=== PATIENT | male | born 1930 | race Caucasian/White ===

== ENCOUNTER 2018-10-06 11:08 | Inpatient (IN) | payer OTHER ==
[2018-10-06 11:21] VITALS: BMI 18.8
[2018-10-06] MEDS ORDERED: ONDANSETRON 4 MG/2 ML VIAL IVPUSH ONE (13:30)
[2018-10-06] MEDS ORDERED: SODIUM CHLORIDE 0.9% 1000 ML INFUS.BAG IV ONE (13:30)
[2018-10-06] MEDS ORDERED: ACETAMINOPHEN 1000 MG/100 ML VIAL (NON FORMULARY) IVPB ONE (13:30)
[2018-10-06] MEDS ORDERED: ACETAMINOPHEN INJECTION 100 ML IVPB ONE (13:37)
[2018-10-06] MEDS ORDERED: ONDANSETRON 4 MG/2 ML VIAL ONE (13:37)
--- NOTE | 2018-10-06 13:53 | PDOC ---
History of Present Illness - General Chief Complaint: Nausea/Vomiting Stated Complaint: VOMITING/ COUGHING/ ABD PAIN Time Seen by Provider: 10/06/18 13:29 History Source: Patient, Family ( present at bedside) Exam Limitations: No Limitations - History of Present Illness Travel History: No Initial Comments: 10/06/18 13:52 87 y/o M with PMHx of DM, Arthritis, Stroke, HTN, HLD, Hypothyroidism presents with 2 day hx of nausea and NBNB vomiting. Patient present with his , who is present at bedside and provide part of the history. Patient was in his usual state of health, tolerating diet until saturday evening when suddenly he felt nauseous while watching television. Since onset, patient has had 10 episodes of NBNB vomiting and has been unable to tolerate PO Intake. This is the first time he has experienced this many episodes of vomiting. Additionally he complains of mild LUQ pain that has accompanied some episodes. Pcp: Dr. Boo ([place]) Cardio: Dr. Stephens ([place]) PMHx: HTN, HLD, DM, Arthritis, Stroke PSHx: CABG Allergies: Denies Social: Denies tobacco, EtOh, Drugs FHx: Father had DM Past History - Travel Traveled outside of the country in the last 30 days: No Close contact w/someone who was outside of country & ill: No - Past Medical History Allergies/Adverse Reactions: Allergies Allergy/AdvReac Type Severity Reaction Status Date / Time No Known Allergies Allergy Verified 10/06/18 11:21 Home Medications: Ambulatory Orders Carvedilol 12.5 mg PO DAILY 10/06/18 Cilostazol 50 mg PO DAILY 10/06/18 Glimepiride 2 mg PO DAILY 10/06/18 Isosorbide Mononitrate [Isosorbide Mononitrate ER] 60 mg PO DAILY 10/06/18 Levothyroxine [Synthroid -] 50 mcg PO DAILY 10/06/18 Cardiac Disorders: Yes (cardiac bypass possible stents) COPD: No Diabetes: Yes GI Disorders: Yes HTN: Yes Thyroid Disease: Yes Other medical history: Arthritis, poor circulation - Surgical History Cardiac Surgery: Yes - Suicide/Smoking/Psychosocial Hx Smoking History: Never smoked Information on smoking cessation initiated: No Hx Alcohol Use: No Drug/Substance Use Hx: No Abd/GI Specific PMHX - Complaint Specific PMHX Colitis: No Diverticulitis: No Gall Bladder Disease: No GERD: No Hepatitis: No Irritable Bowel Synd (IBS): No Pancreatitis: No GI Ulcer Disease: No Review of Systems - Review of Systems Able to Perform ROS?: Yes Is the patient limited Luxembourger proficient: Yes Constitutional: No: Chills, Diaphoresis, Fever HEENTM: No: Blurred Vision, Throat Pain Respiratory: Yes: Cough, Wheezing. No: Shortness of Breath Cardiac (ROS): No: Chest Pain, Edema ABD/GI: Yes: Nausea, Vomiting. No: Constipated, Diarrhea : No: Dysuria, Hematuria Neurological: No: Numbness, Tingling *Physical Exam - Vital Signs Last Vital Signs Temp Pulse Resp BP Pulse Ox 97.5 F L 73 18 104/80 97 10/06/18 11:17 10/06/18 11:17 10/06/18 11:17 10/06/18 11:17 10/06/18 11:17 - Physical Exam General Appearance: Yes: Nourished, Appropriately Dressed HEENT: positive: EOMI, JOSE. negative: Pharyngeal Erythema, Tonsillar Exudate Neck: positive: Supple Respiratory/Chest: positive: Wheezing, Other (Diminished breath sounds at the bases) Cardiovascular: positive: Regular Rhythm, Regular Rate, S1, S2. negative: Edema , JVD, Murmur Gastrointestinal/Abdominal: positive: Normal Bowel Sounds, Soft. 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 Check CBC, CMP, Trop, Lipase, CXR Give 1L NS, Acetaminophen 1g, Zofran, Duoneb Will reasses 10/06/18 15:51 Laboratory Last Values WBC 4.7 K/mm3 (4.0-10.0) 10/06/18 13:58 RBC 4.01 M/mm3 (4.00-5.60) 10/06/18 13:58 Hgb 12.6 GM/dL (11.7-16.9) 10/06/18 13:58 Hct 38.1 % (35.4-49) 10/06/18 13:58 MCV 95.2 fl (80-96) 10/06/18 13:58 MCH 31.5 pg (25.7-33.7) 10/06/18 13:58 MCHC 33.1 g/dl (32.0-35.9) 10/06/18 13:58 RDW 12.8 % (11.9-15.9) 10/06/18 13:58 Plt Count 219 K/MM3 (134-434) 10/06/18 13:58 MPV 8.2 fl (7.5-11.1) 10/06/18 13:58 Absolute Neuts (auto) 3.2 K/mm3 (1.5-8.0) 10/06/18 13:58 Neutrophils % 69.5 % (42.8-82.8) 10/06/18 13:58 Lymphocytes % 21.3 % (8-40) 10/06/18 13:58 Monocytes % 8.3 % (3.8-10.2) 10/06/18 13:58 Eosinophils % 0.1 % (0-4.5) 10/06/18 13:58 Basophils % 0.8 % (0-2.0) 10/06/18 13:58 Nucleated RBC % 0 % (0-0) 10/06/18 13:58 Sodium 123 mmol/L (136-145) L 10/06/18 13:58 Potassium 5.8 mmol/L (3.5-5.1) H 10/06/18 13:58 Chloride 89 mmol/L (98-107) L 10/06/18 13:58 Carbon Dioxide 27 mmol/L (21-32) 10/06/18 13:58 Anion Gap 7 MMOL/L (8-16) L 10/06/18 13:58 BUN 22.4 mg/dL (7-18) H 10/06/18 13:58 Creatinine 1.6 mg/dL (0.55-1.3) H 10/06/18 13:58 Est GFR (CKD-EPI)AfAm 43.62 10/06/18 13:58 Est GFR (CKD-EPI)NonAf 37.64 10/06/18 13:58 Random Glucose 193 mg/dL (74-106) H 10/06/18 13:58 Calcium 9.0 mg/dL (8.5-10.1) 10/06/18 13:58 Total Bilirubin 0.7 mg/dL (0.2-1) 10/06/18 13:58 AST 25 U/L (15-37) 10/06/18 13:58 ALT 22 U/L (13-61) 10/06/18 13:58 Alkaline Phosphatase 113 U/L (45-117) 10/06/18 13:58 Troponin I 0.03 ng/ml (0.00-0.05) 10/06/18 13:58 Total Protein 7.2 g/dl (6.4-8.2) 10/06/18 13:58 Albumin 3.2 g/dl (3.4-5.0) L 10/06/18 13:58 Lipase 77 U/L (73-393) 10/06/18 13:58 Labwork noted above noted Na 123, K+ 5.8, Cl 89. Dr. duffy paged for admission for symptomatic hyponatremia. 10/06/18 16:[address] Duffy--will observe on med-surg Start IV Hydration with NS @ 100 mls/hr; Goal is to raise Na no greater than 8 in the first 24 hours. 10/06/18 17:13 CXR: A single AP view of the chest reveals a left effusion with left base atelectasis or infiltrate. There is a large heart, unfolded aorta, normal jasson, clear left upper lobe and clear right lung. There are sternal sutures. Correlation recommended. Follow-up needed. Given weakness and productive cough, will cover with Azithromycin and Ceftriaxone. *DC/Admit/Observation/Transfer Diagnosis at time of Disposition: Hyponatremia, Wheezing - Discharge Dispostion Condition at time of disposition: Guarded Decision to Admit order: Yes - Referrals - Patient Instructions - Post Discharge Activity
[2018-10-06] MEDS ORDERED: ALBUTEROL SO4 2.5/IPRATROPIUM 0.5 INH SOL 3 ML VIAL.NEB. NEB ONE ×2 (14:03→14:21)
[2018-10-06 14:14] LABS: BASO % 0.8 % (0-2.0); EOS % 0.1 % (0-4.5); HEMATOCRIT 38.1 % (35.4-49); HEMOGLOBIN 12.6 GM/dL (11.7-16.9); LYMPH % 21.3 % (8-40); MCH 31.5 pg (25.7-33.7); MCHC 33.1 g/dl (32.0-35.9); MEAN CELL VOLUME 95.2 fl (80-96); MEAN PLT VOLUME 8.2 fl (7.5-11.1); MONO % 8.3 % (3.8-10.2); NEUT % 69.5 % (42.8-82.8); PLATELET COUNT 219 K/MM3 (134-434); RBC 4.01 M/mm3 (4.00-5.60); RDW 12.8 % (11.9-15.9); WHITE BLOOD COUNT 4.7 K/mm3 (4.0-10.0)
[2018-10-06 14:49] LABS: ALBUMIN 3.2 g/dl (3.4-5.0); BILIRUBIN,TOTAL 0.7 mg/dL (0.2-1); BLOOD UREA NITROGEN 22.4 mg/dL (7-18); CREATININE 1.6 mg/dL (0.55-1.3); POTASSIUM 5.8 mmol/L (3.5-5.1); TOT PROT 7.2 g/dl (6.4-8.2)
[2018-10-06] MEDS ORDERED: SODIUM CHLORIDE 1,000 ML IV SCH (17:00)
[2018-10-06] MEDS ORDERED: CEFTRIAXONE 1 GM in DEXTROSE 5%-WATER - 100 ML IVPB SCH (17:15)
[2018-10-06] MEDS ORDERED: AZITHROMYCIN IVPB 500 MG in DEXTROSE 5%-WATER - 250 ML IVPB SCH (17:15)
[2018-10-06] MEDS ORDERED: AZITHROMYCIN IVPB 500 MG/250 ML BAG IVPB ONE (17:27)
[2018-10-06] MEDS ORDERED: CEFTRIAXONE 1 GM/50 ML BAG ONE (17:27)
--- NOTE | 2018-10-06 18:14 | HP ---
Admitting History and Physical - Primary Care Physician PCP: Che Bethea - Admission History of Present Illness: 87 y/o M with PMHx of DM, Arthritis, Stroke, HTN, HLD, Hypothyroidism presents with 2 day hx of nausea and NBNB vomiting. Patient present with his , who is present at bedside and provide part of the history. Patient was in his usual state of health, tolerating diet until saturday evening when suddenly he felt nauseous while watching television. Since onset, patient has had 10 episodes of NBNB vomiting and has been unable to tolerate PO Intake. This is the first time he has experienced this many episodes of vomiting. Additionally he complains of mild LUQ pain that has accompanied some episodes. - Past Medical History Cardiovascular: Yes: HTN, Hyperlipdemia - Smoking History Smoking history: Never smoked - Alcohol/Substance Use Hx Alcohol Use: No Home Medications - Allergies Allergies/Adverse Reactions: Allergies Allergy/AdvReac Type Severity Reaction Status Date / Time No Known Allergies Allergy Verified 10/06/18 11:21 - Home Medications Home Medications: Ambulatory Orders Carvedilol 12.5 mg PO DAILY 10/06/18 Cilostazol 50 mg PO DAILY 10/06/18 Glimepiride 2 mg PO DAILY 10/06/18 Isosorbide Mononitrate [Isosorbide Mononitrate ER] 60 mg PO DAILY 10/06/18 Levothyroxine [Synthroid -] 50 mcg PO DAILY 10/06/18 Physical Examination Vital Signs: Vital Signs Temperature 98.5 F 10/06/18 17:52 Pulse Rate 72 10/06/18 17:52 Respiratory Rate 10/06/18 17:52 Blood Pressure 133/68 10/06/18 17:52 O2 Sat by Pulse Oximetry (%) 99 10/06/18 17:52 Constitutional: Yes: No Distress HENT: Yes: Atraumatic Neck: Yes: Supple Cardiovascular: Yes: Regular Rate and Rhythm Respiratory: Yes: CTA Bilaterally Gastrointestinal: Yes: Normal Bowel Sounds Extremities: Yes: WNL Edema: No Peripheral Pulses WNL: Yes Neurological: Yes: Alert, Oriented Labs: CBC, BMP 10/06/18 13:58 10/06/18 13:58 Imaging - Results X-ray: Report Reviewed Cat Scan: Report Reviewed Problem List - Problems (1) Hyponatremia Assessment/Plan: will replace Code(s): E87.1 - HYPO-OSMOLALITY AND HYPONATREMIA (2) Wheezing Code(s): R06.2 - WHEEZING (3) Diabetes mellitus Assessment/Plan: monitor bs Code(s): E11.9 - TYPE 2 DIABETES MELLITUS WITHOUT COMPLICATIONS (4) HTN (hypertension) Assessment/Plan: on meds Code(s): I10 - ESSENTIAL (PRIMARY) HYPERTENSION (5) Hyperkalemia Assessment/Plan: monitor and treat renal on board Code(s): E87.5 - HYPERKALEMIA (6) Vomiting Assessment/Plan: prn zofran better Code(s): R11.10 - VOMITING, UNSPECIFIED Assessment/Plan Laboratory Tests 10/06/18 10/06/18 13:58 13:58 WBC 4.7 RBC 4.01 Hgb 12.6 Hct 38.1 MCV 95.2 MCH 31.5 MCHC 33.1 RDW 12.8 Plt Count 219 MPV 8.2 Absolute Neuts (auto) 3.2 Neutrophils % 69.5 Lymphocytes % 21.3 Monocytes % 8.3 Eosinophils % 0.1 Basophils % 0.8 Nucleated RBC % 0 Sodium 123 L Potassium 5.8 H Chloride 89 L Carbon Dioxide 27 Anion Gap 7 L BUN 22.4 H Creatinine 1.6 H Est GFR (CKD-EPI)AfAm 43.62 Est GFR (CKD-EPI)NonAf 37.64 Random Glucose 193 H Calcium 9.0 Total Bilirubin 0.7 AST 25 ALT 22 Alkaline Phosphatase 113 Troponin I 0.03 Total Protein 7.2 Albumin 3.2 L Lipase 77 Active Medications Generic Name Dose Route Start Last Admin Trade Name Freq PRN Reason Stop Dose Admin Carvedilol 12.5 mg 10/07/18 10:00 Coreg - PO DAILY LIZBETH Cilostazol 50 mg 10/07/18 10:00 Pletal - PO DAILY LIZBETH Glimepiride 2 mg 10/07/18 10:00 Amaryl - PO DAILY LIZBETH Sodium Chloride 1,000 mls @ 100 mls/hr 10/06/18 17:00 10/06/18 17:51 Normal Saline - IV 100 mls/hr ASDIR LIZBETH Administration Azithromycin 500 mg/ Dextrose 250 mls @ 250 mls/hr 10/06/18 17:15 10/06/18 17 :55 IVPB 250 mls/hr DAILY LIZBETH Administration Ceftriaxone Sodium 1 gm/ 100 mls @ 200 mls/hr 10/06/18 17:15 10/06/18 17:51 Dextrose IVPB 200 mls/hr DAILY LIZBETH Administration Protocol Sodium Chloride 1,000 mls @ 100 mls/hr 10/06/18 18:15 Normal Saline - IV ASDIR LIZBETH Isosorbide Mononitrate 60 mg 10/07/18 10:00 Imdur - PO DAILY LIZBETH Levothyroxine Sodium 50 mcg 10/07/18 10:00 Synthroid - PO DAILY LIZBETH
[2018-10-06] MEDS: SODIUM CHLORIDE 1,000 ML IV SCH (18:27)
--- NOTE | 2018-10-06 21:21 | CONSULT ---
Consult Consult Specialty:: Nephrology Reason for Consultation:: hyponatremia and hyperkalemia - History of Present Illness Chief Complaint: nausea and vomiting History of Present Illness: Pt is an 87 year old male with pmhx of DM, arhtritis, CVA, HLD, hypothyroisims, and HTN who presents to the ER with nausea and vomiting. He says that he has had these symptoms for the last 5 days. He says that the nausea and vomiting have gotten worse over the last two days. HE denies abdominal pain. He denies nsaid use. He was found to be hyponatremic and hyperkalemic. He has loss of appetite. He denies dysuria or hematuria. No one else at home has similar symptoms. He does not recall eating anything out of the ordinary. - History Source History Provided By: Patient, Medical Record - Past Medical History Cardio/Vascular: Yes: HTN, Hyperlipdemia Endocrine: Yes: Diabetes Mellitus, Hypothyroidism - Alcohol/Substance Use Hx Alcohol Use: No - Smoking History Smoking history: Never smoked Home Medications - Allergies Allergies/Adverse Reactions: Allergies Allergy/AdvReac Type Severity Reaction Status Date / Time No Known Allergies Allergy Verified 10/06/18 11:21 - Home Medications Home Medications: Ambulatory Orders Carvedilol 12.5 mg PO DAILY 10/06/18 Cilostazol 50 mg PO DAILY 10/06/18 Glimepiride 2 mg PO DAILY 10/06/18 Isosorbide Mononitrate [Isosorbide Mononitrate ER] 60 mg PO DAILY 10/06/18 Levothyroxine [Synthroid -] 50 mcg PO DAILY 10/06/18 Family Disease History - Family Disease History Family History: Denies Review of Systems - Review of Systems Constitutional: reports: Malaise. denies: Chills, Fever Eyes: reports: No Symptoms HENT: reports: No Symptoms Neck: reports: No Symptoms Cardiovascular: reports: No Symptoms Respiratory: reports: No Symptoms Gastrointestinal: reports: Nausea, Vomiting. denies: Vomiting Blood Genitourinary: reports: No Symptoms Musculoskeletal: reports: No Symptoms Integumentary: reports: No Symptoms Neurological: reports: No Symptoms Endocrine: reports: No Symptoms Hematology/Lymphatic: reports: No Symptoms Psychiatric: reports: No Symptoms Physical Exam Vital Signs: Vital Signs Temperature 98.5 F 10/06/18 17:52 Pulse Rate 72 10/06/18 17:52 Respiratory Rate 19 10/06/18 17:52 Blood Pressure 133/68 10/06/18 17:52 O2 Sat by Pulse Oximetry (%) 99 10/06/18 17:52 Constitutional: Yes: Calm Eyes: Yes: Conjunctiva Clear HENT: Yes: Atraumatic Neck: Yes: Supple Cardiovascular: Yes: S1, S2 Respiratory: Yes: CTA Bilaterally Gastrointestinal: Yes: Normal Bowel Sounds, Soft Renal/: Yes: WNL Musculoskeletal: Yes: WNL Edema: No Neurological: Yes: Oriented Psychiatric: Yes: Oriented Labs: CBC, BMP 10/06/18 13:58 10/06/18 13:58 Laboratory Tests 10/06/18 10/06/18 13:58 13:58 WBC 4.7 Hgb 12.6 Plt Count 219 Sodium 123 L Potassium 5.8 H Chloride 89 L BUN 22.4 H Creatinine 1.6 H Random Glucose 193 H Albumin 3.2 L Imaging - Results Chest X-ray: Report Reviewed (left pleural effusion) Problem List - Problems (1) Hyperkalemia Code(s): E87.5 - HYPERKALEMIA (2) HTN (hypertension) Code(s): I10 - ESSENTIAL (PRIMARY) HYPERTENSION (3) Diabetes mellitus Code(s): E11.9 - TYPE 2 DIABETES MELLITUS WITHOUT COMPLICATIONS (4) Vomiting Code(s): R11.10 - VOMITING, UNSPECIFIED (5) Hyponatremia Code(s): E87.1 - HYPO-OSMOLALITY AND HYPONATREMIA Assessment/Plan Current Medications Generic Name Dose Route Start Last Admin Trade Name Freq PRN Reason Stop Dose Admin Carvedilol 12.5 mg 10/07/18 10:00 Coreg - PO DAILY LIZBETH Cilostazol 50 mg 10/07/18 10:00 Pletal - PO DAILY LIZBETH Glimepiride 2 mg 10/07/18 07:00 Amaryl - PO ACBK LIZBETH Heparin Sodium (Porcine) 5,000 unit 10/06/18 22:00 Heparin - SQ BID LIZBETH Azithromycin 500 mg/ Dextrose 250 mls @ 250 mls/hr 10/06/18 17:15 10/06/18 17 :55 IVPB 250 mls/hr DAILY LIZBETH Administration Ceftriaxone Sodium 1 gm/ 100 mls @ 200 mls/hr 10/06/18 17:15 10/06/18 17:51 Dextrose IVPB 200 mls/hr DAILY LIZBETH Administration Protocol Sodium Chloride 1,000 mls @ 100 mls/hr 10/06/18 18:15 10/06/18 18:27 Normal Saline - IV 100 mls/hr ASDIR LIZBETH Administration Isosorbide Mononitrate 60 mg 10/07/18 10:00 Imdur - PO DAILY LIZBETH Levothyroxine Sodium 50 mcg 10/07/18 10:00 Synthroid - PO DAILY@0700 LIZBETH Impression 1. hyponatremia 2. hyperkalemia 3. nausea and vomiting 4. htn 5. dm 6. hypothyroidism 7. javan vs ckd Plan - check ua - check urine lytes and tire repairman - repeat bmp, spoke to nurse to call me with results - can cont fluids for now - check renal ultrasound - electrolyte abnormalities may be from vomiting
[2018-10-06 22:21] LABS: CALCIUM 8.3 mg/dL (8.5-10.1); CREATININE 1.6 mg/dL (0.55-1.3); POTASSIUM 5.4 mmol/L (3.5-5.1)
[2018-10-06] MEDS: HEPARIN NA (PORCINE) 5,000 UNITS/ML 1ML VIAL SQ SCH (22:45)
[2018-10-07] MEDS: SODIUM CHLORIDE 1,000 ML IV SCH ×3 (03:03→21:25)
[2018-10-07 04:45] LABS: EPI CELLS 0.2 /HPF (0-5/HPF); HYALINE CASTS 3 /lpf (0-8); PH,URINE 5.5 (5.0-8.0); URINE APPEARANCE CLEAR; URINE BACTERIA 0.3 /hpf (NEGATIVE); URINE BILIRUBIN NEGATIVE (NEGATIVE); URINE COLOR YELLOW; URINE GLUCOSE (UA) NEGATIVE (NEGATIVE); URINE KETONE NEGATIVE (NEGATIVE); URINE LEUK ESTERASE NEGATIVE (NEGATIVE); URINE NITRITE NEGATIVE (NEGATIVE); URINE PROTEIN 1+ (NEGATIVE); URINE RBC 1 /hpf (0-4); URINE UROBILINOGEN 0.2 mg/dL (0.2-1.0); URINE WBC 0 /hpf (0-5)
[2018-10-07] MEDS: GLIMEPIRIDE 2 MG TABLET (FP) PO SCH (07:08)
--- NOTE | 2018-10-07 08:01 | CON.GI ---
Consult - History of Present Illness History of Present Illness: GI CONSULT DICTATED - PPI -CLEAR LIQUID DIET ADVANCE TOLERATED - ESOPHAGRAM / GI SERIES ORDERED SEE FULL CONSULT DICTATED - Past Medical History Cardio/Vascular: Yes: HTN, Hyperlipdemia Endocrine: Yes: Diabetes Mellitus, Hypothyroidism - Alcohol/Substance Use Hx Alcohol Use: No - Smoking History Smoking history: Never smoked Home Medications - Allergies Allergies/Adverse Reactions: Allergies Allergy/AdvReac Type Severity Reaction Status Date / Time No Known Allergies Allergy Verified 10/06/18 11:21 - Home Medications Home Medications: Ambulatory Orders Carvedilol 12.5 mg PO DAILY 10/06/18 Cilostazol 50 mg PO DAILY 10/06/18 Glimepiride 2 mg PO DAILY 10/06/18 Isosorbide Mononitrate [Isosorbide Mononitrate ER] 60 mg PO DAILY 10/06/18 Levothyroxine [Synthroid -] 50 mcg PO DAILY 10/06/18 Physical Exam-GI Vital Signs: Vital Signs Temperature 97.8 F 10/07/18 06:52 Pulse Rate 68 10/07/18 06:52 Respiratory Rate 20 10/07/18 06:52 Blood Pressure 146/74 10/07/18 06:52 O2 Sat by Pulse Oximetry (%) 98 10/07/18 00:20
[2018-10-07 08:49] LABS: BASO % 0.9 % (0-2.0); EOS % 0.7 % (0-4.5); HEMATOCRIT 35.6 % (35.4-49); LYMPH % 30.5 % (8-40); MCHC 33.7 g/dl (32.0-35.9); MEAN CELL VOLUME 95.1 fl (80-96); MEAN PLT VOLUME 8.6 fl (7.5-11.1); MONO % 13.5 % (3.8-10.2); NEUT % 54.4 % (42.8-82.8); PLATELET COUNT 194 K/MM3 (134-434); RBC 3.74 M/mm3 (4.00-5.60); RDW 13.1 % (11.9-15.9)
[2018-10-07 08:55] LABS: BILIRUBIN,TOTAL 0.5 mg/dL (0.2-1); BLOOD UREA NITROGEN 22.1 mg/dL (7-18); CALCIUM 8.6 mg/dL (8.5-10.1); CREATININE 1.6 mg/dL (0.55-1.3); POTASSIUM 5.5 mmol/L (3.5-5.1); TOT PROT 6.5 g/dl (6.4-8.2)
[2018-10-07] MEDS: LEVOTHYROXINE NA 50 MCG TABLET (FP) PO SCH (09:01)
[2018-10-07] MEDS: CARVEDILOL 12.5 MG TABLET (FP) PO SCH (09:01)
[2018-10-07] MEDS: HEPARIN NA (PORCINE) 5,000 UNITS/ML 1ML VIAL SQ SCH ×2 (09:01→21:25)
[2018-10-07] MEDS: ISOSORBIDE MONONITRATE 60 MG TAB.SR.24H (FP) PO SCH (09:01)
[2018-10-07] MEDS ORDERED: cefTRIAXone SODIUM 1 GM VIAL ONE (09:27)
[2018-10-07] MEDS ORDERED: DEXTROSE 5%-WATER - 50 ML IVPB ONE (09:27)
[2018-10-07] MEDS: CEFTRIAXONE 1 GM in DEXTROSE 5%-WATER - 50 ML IVPB SCH (09:52)
[2018-10-07] MEDS ORDERED: PT OWN MED DRAWER 7, Y5N ONE (10:03)
[2018-10-07] MEDS: CILOSTAZOL 50 MG TABLET (FP) PO SCH (10:23)
[2018-10-07] MEDS: AZITHROMYCIN IVPB 500 MG/250 ML BAG IVPB SCH (10:24)
--- NOTE | 2018-10-07 11:33 | CON.ID ---
Consult Consult Specialty:: infectious diseases Referred by:: Reason for Consultation:: cough sputum production - History of Present Illness Chief Complaint: cough with sputum production History of Present Illness: 87 y/o M with PMHx of DM, Arthritis, Stroke, HTN, HLD, Hypothyroidism presents with 2 day hx of nausea and NBNB vomiting. Patient was in his usual state of health, tolerating diet until saturday evening when suddenly he felt nauseous while watching television. Since onset, patient has had 10 episodes of NBNB vomiting and has been unable to tolerate PO Intake. This is the first time he has experienced this many episodes of vomiting. Additionally he complains of mild LUQ pain that has accompanied some episodes. patient now mentions that he has no abd issues but is producing cough and thinks his lungs are involved - History Source History Provided By: Patient, Caregiver Limitations to Obtaining History: Language Barrier - Past Medical History Cardio/Vascular: Yes: HTN, Hyperlipdemia Endocrine: Yes: Diabetes Mellitus, Hypothyroidism - Alcohol/Substance Use Hx Alcohol Use: No - Smoking History Smoking history: Never smoked Home Medications - Allergies Allergies/Adverse Reactions: Allergies Allergy/AdvReac Type Severity Reaction Status Date / Time No Known Allergies Allergy Verified 10/06/18 11:21 - Home Medications Home Medications: Ambulatory Orders Carvedilol 12.5 mg PO DAILY 10/06/18 Cilostazol 50 mg PO DAILY 10/06/18 Glimepiride 2 mg PO DAILY 10/06/18 Isosorbide Mononitrate [Isosorbide Mononitrate ER] 60 mg PO DAILY 10/06/18 Levothyroxine [Synthroid -] 50 mcg PO DAILY 10/06/18 Review of Systems - Review of Systems Constitutional: reports: No Symptoms Eyes: reports: No Symptoms HENT: reports: No Symptoms Neck: reports: No Symptoms Cardiovascular: reports: No Symptoms Respiratory: reports: Cough, Other (sputum production) Gastrointestinal: reports: Nausea, Vomiting Genitourinary: reports: No Symptoms Breasts: reports: No Symptoms Reported Musculoskeletal: reports: No Symptoms Integumentary: reports: No Symptoms Neurological: reports: No Symptoms Endocrine: reports: No Symptoms Hematology/Lymphatic: reports: No Symptoms Psychiatric: reports: No Symptoms Physical Exam Vital Signs: Vital Signs Temperature 98.8 F 10/07/18 09:57 Pulse Rate 80 10/07/18 09:57 Respiratory Rate 20 10/07/18 09:57 Blood Pressure 153/93 10/07/18 09:57 O2 Sat by Pulse Oximetry (%) 98 10/07/18 08:56 Constitutional: Yes: No Distress, Calm, Thin Neck: Yes: Supple, Trachea Midline Cardiovascular: Yes: Regular Rate and Rhythm Respiratory: Yes: Regular, CTA Bilaterally Gastrointestinal: Yes: Normal Bowel Sounds, Soft Musculoskeletal: Yes: WNL Extremities: Yes: WNL Neurological: Yes: Alert, Oriented Psychiatric: Yes: Alert, Oriented Labs: CBC, BMP 10/07/18 07:20 10/07/18 07:20 Imaging - Results Chest X-ray: Report Reviewed, Image Reviewed Cat Scan: Report Reviewed, Image Reviewed Assessment/Plan Problem List - Problems (1) Hyponatremia Code(s): E87.1 - HYPO-OSMOLALITY AND HYPONATREMIA (2) Wheezing Code(s): R06.2 - WHEEZING 3 vomiting cough plan continue current mgmt await for all reports rest as per the team
--- NOTE | 2018-10-07 12:45 | EKG ---
Test Reason : Blood Pressure : / mmHG Vent. Rate : 064 BPM Atrial Rate : 064 BPM P-R Int : 240 ms QRS Dur : 146 ms QT Int : 534 ms P-R-T Axes : 000 -04 210 degrees QTc Int : 550 ms SINUS RHYTHM WITH 1ST DEGREE A-V BLOCK LEFT BUNDLE BRANCH BLOCK ABNORMAL ECG WHEN COMPARED WITH ECG OF 21-OCT-2008 02:08, NM INTERVAL HAS INCREASED Confirmed by Ruperto Taylor MD ([id number]) on 10/07/2018 12:44:38 PM Referred By: Confirmed By:Ruperto Taylor MD
--- NOTE | 2018-10-07 14:44 | PN ---
Progress Note, Physician History of Present Illness: Pt seen and examined at bedside. He is awake and alert. He denies shortness of breath. - Current Medication List Current Medications: Active Medications Carvedilol (Coreg -) 12.5 mg PO DAILY [facility] Last Admin: 10/07/18 09:01 Dose: 12.5 mg Cilostazol (Pletal -) 50 mg PO DAILY [facility] Last Admin: 10/07/18 10:23 Dose: 50 mg Glimepiride (Amaryl -) 2 mg PO ACBK [facility] Last Admin: 10/07/18 07:08 Dose: 2 mg Heparin Sodium (Porcine) (Heparin -) 5,000 unit SQ BID [facility] Last Admin: 10/07/18 09:01 Dose: 5,000 unit Sodium Chloride (Normal Saline -) 1,000 mls @ 100 mls/hr IV ASDIR [facility] Last Admin: 10/07/18 03:03 Dose: 100 mls/hr Ceftriaxone Sodium 1 gm/ (Dextrose) 50 mls @ 100 mls/hr IVPB DAILY [facility]; Protocol Last Admin: 10/07/18 09:52 Dose: 100 mls/hr Azithromycin (Zithromax 500mg Ivpb (Pre-Docked)) 500 mg in 250 mls @ 250 mls/ hr IVPB DAILY [facility] Last Admin: 10/07/18 10:24 Dose: 250 mls/hr Isosorbide Mononitrate (Imdur -) 60 mg PO DAILY [facility] Last Admin: 10/07/18 09:01 Dose: 60 mg Levothyroxine Sodium (Synthroid -) 50 mcg PO DAILY@0700 [facility] Last Admin: 10/07/18 09:01 Dose: 50 mcg Pantoprazole Sodium (Protonix -) 40 mg PO DAILY [facility] - Objective Vital Signs: Vital Signs Temperature 98.8 F 10/07/18 09:57 Pulse Rate 80 10/07/18 09:57 Respiratory Rate 20 10/07/18 09:57 Blood Pressure 153/93 10/07/18 09:57 O2 Sat by Pulse Oximetry (%) 98 10/07/18 08:56 Constitutional: Yes: Calm Eyes: Yes: Conjunctiva Clear HENT: Yes: Atraumatic Neck: Yes: Supple Cardiovascular: Yes: S1, S2 Respiratory: Yes: CTA Bilaterally Gastrointestinal: Yes: Soft Genitourinary: Yes: WNL Extremities: Yes: WNL Edema: No Neurological: Yes: Oriented Psychiatric: Yes: Oriented Labs: CBC, BMP 10/07/18 07:20 10/07/18 07:20 Problem List - Problems (1) Hyperkalemia Code(s): E87.5 - HYPERKALEMIA (2) HTN (hypertension) Code(s): I10 - ESSENTIAL (PRIMARY) HYPERTENSION (3) Diabetes mellitus Code(s): E11.9 - TYPE 2 DIABETES MELLITUS WITHOUT COMPLICATIONS (4) Vomiting Code(s): R11.10 - VOMITING, UNSPECIFIED (5) Hyponatremia Code(s): E87.1 - HYPO-OSMOLALITY AND HYPONATREMIA Assessment/Plan Current Medications Generic Name Dose Route Start Last Admin Trade Name Freq PRN Reason Stop Dose Admin Carvedilol 12.5 mg 10/07/18 10:00 10/07/18 09:01 Coreg - PO 12.5 mg DAILY LIZBETH Administration Cilostazol 50 mg 10/07/18 10:00 10/07/18 10:23 Pletal - PO 50 mg DAILY LIZBETH Administration Glimepiride 2 mg 10/07/18 07:00 10/07/18 07:08 Amaryl - PO 2 mg ACBK LIZBETH Administration Heparin Sodium (Porcine) 5,000 unit 10/06/18 22:00 10/07/18 09:01 Heparin - SQ 5,000 unit BID LIZEBTH Administration Sodium Chloride 1,000 mls @ 100 mls/hr 10/06/18 18:15 10/07/18 03:03 Normal Saline - IV 100 mls/hr ASDIR LIZBETH Administration Ceftriaxone Sodium 1 gm/ 50 mls @ 100 mls/hr 10/07/18 08:27 10/07/18 09:52 Dextrose IVPB 100 mls/hr DAILY LIZBETH Administration Protocol Azithromycin 500 mg in 250 mls @ 250 mls/hr 10/07/18 09:20 10/07/18 10:24 Zithromax 500mg Ivpb (Pre-Docked) IVPB 250 mls/hr DAILY LIZBETH Administration Isosorbide Mononitrate 60 mg 10/07/18 10:00 10/07/18 09:01 Imdur - PO 60 mg DAILY LIZBETH Administration Levothyroxine Sodium 50 mcg 10/07/18 10:00 10/07/18 09:01 Synthroid - PO 50 mcg DAILY@0700 LIZBETH Administration Pantoprazole Sodium 40 mg 10/07/18 13:45 Protonix - PO DAILY LIZBETH Impression 1. hyponatremia 2. hyperkalemia 3. nausea and vomiting 4. htn 5. dm 6. hypothyroidism 7. javan vs ckd Plan - cont with fluids - sodium improving - will give a dose of lokelma - check renal ultrasound, was just done - electrolyte abnormalities may be from vomiting
[2018-10-07] MEDS ORDERED: SODIUM ZIRCONIUM CYCLOSILICATE (LOKELMA) 5 GM PACKET PO ONE (15:30)
[2018-10-07] MEDS: PANTOPRAZOLE 40 MG TABLET (FP) PO SCH (15:36)
--- NOTE | 2018-10-07 16:13 | PN ---
Progress Note, Physician History of Present Illness: stable - Current Medication List Current Medications: Active Medications Carvedilol (Coreg -) 12.5 mg PO DAILY [facility] Last Admin: 10/07/18 09:01 Dose: 12.5 mg Cilostazol (Pletal -) 50 mg PO DAILY [facility] Last Admin: 10/07/18 10:23 Dose: 50 mg Glimepiride (Amaryl -) 2 mg PO ACBK [facility] Last Admin: 10/07/18 07:08 Dose: 2 mg Heparin Sodium (Porcine) (Heparin -) 5,000 unit SQ BID [facility] Last Admin: 10/07/18 09:01 Dose: 5,000 unit Sodium Chloride (Normal Saline -) 1,000 mls @ 100 mls/hr IV ASDIR [facility] Last Admin: 10/07/18 03:03 Dose: 100 mls/hr Ceftriaxone Sodium 1 gm/ (Dextrose) 50 mls @ 100 mls/hr IVPB DAILY [facility]; Protocol Last Admin: 10/07/18 09:52 Dose: 100 mls/hr Azithromycin (Zithromax 500mg Ivpb (Pre-Docked)) 500 mg in 250 mls @ 250 mls/ hr IVPB DAILY [facility] Last Admin: 10/07/18 10:24 Dose: 250 mls/hr Isosorbide Mononitrate (Imdur -) 60 mg PO DAILY [facility] Last Admin: 10/07/18 09:01 Dose: 60 mg Levothyroxine Sodium (Synthroid -) 50 mcg PO DAILY@0700 [facility] Last Admin: 10/07/18 09:01 Dose: 50 mcg Pantoprazole Sodium (Protonix -) 40 mg PO DAILY [facility] Last Admin: 10/07/18 15:36 Dose: 40 mg - Objective Vital Signs: Vital Signs Temperature 98.8 F 10/07/18 09:57 Pulse Rate 80 10/07/18 09:57 Respiratory Rate 20 10/07/18 09:57 Blood Pressure 153/93 10/07/18 09:57 O2 Sat by Pulse Oximetry (%) 98 10/07/18 08:56 Constitutional: Yes: No Distress HENT: Yes: Atraumatic Neck: Yes: Supple Cardiovascular: Yes: Regular Rate and Rhythm Respiratory: Yes: CTA Bilaterally Gastrointestinal: Yes: Normal Bowel Sounds Extremities: Yes: WNL Edema: No Neurological: Yes: Alert, Oriented Labs: CBC, BMP 10/07/18 07:20 10/07/18 07:20 Problem List - Problems (1) Hyponatremia Assessment/Plan: will replace Code(s): E87.1 - HYPO-OSMOLALITY AND HYPONATREMIA (2) Wheezing Code(s): R06.2 - WHEEZING (3) Hypothyroid Code(s): E03.9 - HYPOTHYROIDISM, UNSPECIFIED (4) Diabetes mellitus Assessment/Plan: monitor bs Code(s): E11.9 - TYPE 2 DIABETES MELLITUS WITHOUT COMPLICATIONS (5) HTN (hypertension) Assessment/Plan: on meds Code(s): I10 - ESSENTIAL (PRIMARY) HYPERTENSION (6) Hyperkalemia Assessment/Plan: monitor and treat renal on board Code(s): E87.5 - HYPERKALEMIA (7) Vomiting Assessment/Plan: prn zofran resolved Code(s): R11.10 - VOMITING, UNSPECIFIED
[2018-10-07] MEDS ORDERED: INSULIN (LEVEMIR) 100 UNITS/ML UNITS SQ ONE (18:09)
--- NOTE | 2018-10-07 19:12 | CONS ---
DATE OF CONSULTATION: DATE OF DICTATION: 10/07/2018 GASTROENTEROLOGY CONSULTATION The patient is an 87-year-old male with a past medical history of diabetes, arthritis, CVA, hypertension, hyperlipidemia, hypothyroidism, who presents with a 2-day history of nausea and vomiting. As per the patient's history, he states that he is still spitting up phlegm, and he is experiencing some epigastric burning sensation. His symptoms apparently began on Saturday, after he developed nausea while watching television. He denies previous episodes in the past. At this time. He denies any abdominal pain, diarrhea, constipation, blood in the stool or hematemesis. He has never had an endoscopic evaluation, as per his history and review of the chart. PAST MEDICAL AND SURGICAL HISTORY: As listed in the HPI. ALLERGIES: No known drug allergies. SOCIAL HISTORY: Does not drink or smoke. Lives with family. HOME MEDICATIONS: Include carvedilol, cilostazol, glimepiride, isosorbide and Synthroid. FAMILY HISTORY: No history of GI or gynecological malignancy. PHYSICAL EXAMINATION: Vital Signs: Temperature 98, pulse 80, respiratory rate 12, blood pressure 150/ 93, pulse oximetry 98% on room air. General: In no acute distress. HEENT: Anicteric sclerae. Cardiovascular: S1/S2. Regular rate and rhythm. Lungs: Bilaterally clear to auscultation. Abdomen: Soft and nontender. Extremities: No edema. LABORATORY DATA: White blood cell count 5, hemoglobin 12, hematocrit 35, MCV 95 , platelet count 194. Sodium 127, potassium 5.5, BUN 22, creatinine 1.6, glucose 103, AST 18, ALT 19, alkaline phosphatase 107, total bilirubin 0.5. Urine protein 1+ . IMAGING: He had an abdomen and pelvis CT scan without contrast, which revealed pleural effusion, bibasilar consolidation versus atelectasis, mild cardiomegaly , and calcification of the coronary arteries. Limited evaluation of the abdomen and pelvis considering there is no contrast. There is no evidence of a small bowel obstruction. However, dense calcified plaques in the abdominal aorta wall down to its bifurcation, without aneurysmal dilation. Subcutaneous edema. A suggestion of anasarca. IMPRESSION: Nausea and vomiting with epigastric burning sensation, further complicated by hyponatremia and wheezing. His current symptoms may be secondary to gastroesophageal reflux disease, peptic ulcer disease or an infectious etiology. RECOMMENDATION: He should be started on Protonix 40 mg IV daily. Clear liquid diet today and can be advanced as tolerated to a full liquid diet and to a bland diet. Further evaluation of his hyponatremia as per the primary medical team. Continue antibiotics and nebulizers for his wheeze and pulmonary process. He is a very poor historian. There is some expression of dysphagia. Will therefore order an esophagram and upper GI series to further evaluate. Would prefer to hold off on any invasive procedures at this time considering his cardiopulmonary process and advanced age. The patient will be followed by the GI service. DO PAO PIERCE/[id number] MTDD
[2018-10-08 07:42] LABS: ALBUMIN 2.9 g/dl (3.4-5.0); BILIRUBIN,TOTAL 0.3 mg/dL (0.2-1); BLOOD UREA NITROGEN 20.3 mg/dL (7-18); CALCIUM 7.8 mg/dL (8.5-10.1); CREATININE 1.5 mg/dL (0.55-1.3); POTASSIUM 3.9 mmol/L (3.5-5.1); TOT PROT 5.9 g/dl (6.4-8.2)
[2018-10-08] MEDS: LEVOTHYROXINE NA 50 MCG TABLET (FP) PO SCH (10:19)
[2018-10-08] MEDS: HEPARIN NA (PORCINE) 5,000 UNITS/ML 1ML VIAL SQ SCH ×2 (10:19→21:59)
[2018-10-08] MEDS: PANTOPRAZOLE 40 MG TABLET (FP) PO SCH (10:19)
[2018-10-08] MEDS: ISOSORBIDE MONONITRATE 60 MG TAB.SR.24H (FP) PO SCH (10:19)
[2018-10-08] MEDS: GLIMEPIRIDE 2 MG TABLET (FP) PO SCH (10:19)
[2018-10-08] MEDS: CARVEDILOL 12.5 MG TABLET (FP) PO SCH (10:19)
[2018-10-08] MEDS: AZITHROMYCIN IVPB 500 MG/250 ML BAG IVPB SCH (10:20)
[2018-10-08] MEDS: CILOSTAZOL 50 MG TABLET (FP) PO SCH (10:22)
--- NOTE | 2018-10-08 11:02 | PN ---
Progress Note, Physician History of Present Illness: stable no new issues gi note noted - Current Medication List Current Medications: Active Medications Carvedilol (Coreg -) 12.5 mg PO DAILY [facility] Last Admin: 10/08/18 10:19 Dose: 12.5 mg Cilostazol (Pletal -) 50 mg PO DAILY [facility] Last Admin: 10/08/18 10:22 Dose: 50 mg Glimepiride (Amaryl -) 2 mg PO ACBK [facility] Last Admin: 10/08/18 10:19 Dose: 2 mg Heparin Sodium (Porcine) (Heparin -) 5,000 unit SQ BID [facility] Last Admin: 10/08/18 10:19 Dose: 5,000 unit Sodium Chloride (Normal Saline -) 1,000 mls @ 100 mls/hr IV ASDIR [facility] Last Admin: 10/07/18 21:25 Dose: Not Given Ceftriaxone Sodium 1 gm/ (Dextrose) 50 mls @ 100 mls/hr IVPB DAILY [facility]; Protocol Last Admin: 10/07/18 09:52 Dose: 100 mls/hr Azithromycin (Zithromax 500mg Ivpb (Pre-Docked)) 500 mg in 250 mls @ 250 mls/ hr IVPB DAILY [facility] Last Admin: 10/08/18 10:20 Dose: 250 mls/hr Isosorbide Mononitrate (Imdur -) 60 mg PO DAILY [facility] Last Admin: 10/08/18 10:19 Dose: 60 mg Levothyroxine Sodium (Synthroid -) 50 mcg PO DAILY@0700 [facility] Last Admin: 10/08/18 10:19 Dose: 50 mcg Pantoprazole Sodium (Protonix -) 40 mg PO DAILY [facility] Last Admin: 10/08/18 10:19 Dose: 40 mg - Objective Vital Signs: Vital Signs Temperature 98.8 F 10/08/18 10:00 Pulse Rate 80 10/08/18 10:00 Respiratory Rate 20 10/08/18 10:00 Blood Pressure 148/84 10/08/18 10:00 O2 Sat by Pulse Oximetry (%) 98 10/07/18 21:00 Constitutional: Yes: Calm Cardiovascular: Yes: Regular Rate and Rhythm Respiratory: Yes: Regular, CTA Bilaterally Gastrointestinal: Yes: Normal Bowel Sounds, Soft Musculoskeletal: Yes: WNL Extremities: Yes: WNL Neurological: Yes: Alert, Oriented Psychiatric: Yes: Alert, Oriented Labs: CBC, BMP 10/07/18 07:20 10/08/18 06:21 Assessment/Plan Problem List - Problems (1) Hyponatremia Code(s): E87.1 - HYPO-OSMOLALITY AND HYPONATREMIA (2) Wheezing Code(s): R06.2 - WHEEZING 3 vomiting cough plan continue current mgmt await for all reports rest as per the team
[2018-10-08] MEDS ORDERED: DEXTROSE 5%-WATER - 50 ML IVPB ONE (12:30)
[2018-10-08] MEDS ORDERED: cefTRIAXone SODIUM 1 GM VIAL ONE (12:30)
[2018-10-08] MEDS: CEFTRIAXONE 1 GM in DEXTROSE 5%-WATER - 50 ML IVPB SCH (12:32)
--- NOTE | 2018-10-08 13:15 | PN ---
Progress Note, Physician History of Present Illness: Pt seen and examined at bedside. He is awake and alert. He denies dysuria or hematuria. - Current Medication List Current Medications: Active Medications Carvedilol (Coreg -) 12.5 mg PO DAILY [facility] Last Admin: 10/08/18 10:19 Dose: 12.5 mg Cilostazol (Pletal -) 50 mg PO DAILY [facility] Last Admin: 10/08/18 10:22 Dose: 50 mg Glimepiride (Amaryl -) 2 mg PO ACBK [facility] Last Admin: 10/08/18 10:19 Dose: 2 mg Heparin Sodium (Porcine) (Heparin -) 5,000 unit SQ BID [facility] Last Admin: 10/08/18 10:19 Dose: 5,000 unit Sodium Chloride (Normal Saline -) 1,000 mls @ 100 mls/hr IV ASDIR [facility] Last Admin: 10/07/18 21:25 Dose: Not Given Ceftriaxone Sodium 1 gm/ (Dextrose) 50 mls @ 100 mls/hr IVPB DAILY [facility]; Protocol Last Admin: 10/08/18 12:32 Dose: 100 mls/hr Azithromycin (Zithromax 500mg Ivpb (Pre-Docked)) 500 mg in 250 mls @ 250 mls/ hr IVPB DAILY [facility] Last Admin: 10/08/18 10:20 Dose: 250 mls/hr Isosorbide Mononitrate (Imdur -) 60 mg PO DAILY [facility] Last Admin: 10/08/18 10:19 Dose: 60 mg Levothyroxine Sodium (Synthroid -) 50 mcg PO DAILY@0700 [facility] Last Admin: 10/08/18 10:19 Dose: 50 mcg Pantoprazole Sodium (Protonix -) 40 mg PO DAILY [facility] Last Admin: 10/08/18 10:19 Dose: 40 mg - Objective Vital Signs: Vital Signs Temperature 98.8 F 10/08/18 10:00 Pulse Rate 80 10/08/18 10:00 Respiratory Rate 20 10/08/18 10:00 Blood Pressure 148/84 10/08/18 10:00 O2 Sat by Pulse Oximetry (%) 98 10/07/18 21:00 Constitutional: Yes: Calm Eyes: Yes: Conjunctiva Clear HENT: Yes: Atraumatic Neck: Yes: Supple Cardiovascular: Yes: S1, S2 Respiratory: Yes: CTA Bilaterally Gastrointestinal: Yes: Soft Genitourinary: Yes: WNL Musculoskeletal: Yes: WNL Edema: No Neurological: Yes: Oriented Psychiatric: Yes: Oriented Labs: CBC, BMP 10/07/18 07:20 10/08/18 06:21 Problem List - Problems (1) Hyperkalemia Code(s): E87.5 - HYPERKALEMIA (2) HTN (hypertension) Code(s): I10 - ESSENTIAL (PRIMARY) HYPERTENSION (3) Diabetes mellitus Code(s): E11.9 - TYPE 2 DIABETES MELLITUS WITHOUT COMPLICATIONS (4) Vomiting Code(s): R11.10 - VOMITING, UNSPECIFIED (5) Hyponatremia Code(s): E87.1 - HYPO-OSMOLALITY AND HYPONATREMIA Assessment/Plan Current Medications Generic Name Dose Route Start Last Admin Trade Name Freq PRN Reason Stop Dose Admin Carvedilol 12.5 mg 10/07/18 10:00 10/08/18 10:19 Coreg - PO 12.5 mg DAILY [facility] Administration Cilostazol 50 mg 10/07/18 10:00 10/08/18 10:22 Pletal - PO 50 mg DAILY [facility] Administration Glimepiride 2 mg 10/07/18 07:00 10/08/18 10:19 Amaryl - PO 2 mg ACBK [facility] Administration Heparin Sodium (Porcine) 5,000 unit 10/06/18 22:00 10/08/18 10:19 Heparin - SQ 5,000 unit BID [facility] Administration Sodium Chloride 1,000 mls @ 100 mls/hr 10/06/18 18:15 10/07/18 21:25 Normal Saline - IV Not Given ASDIR [facility] Ceftriaxone Sodium 1 gm/ 50 mls @ 100 mls/hr 10/07/18 08:27 10/08/18 12:32 Dextrose IVPB 100 mls/hr DAILY [facility] Administration Protocol Azithromycin 500 mg in 250 mls @ 250 mls/hr 10/07/18 09:20 10/08/18 10:20 Zithromax 500mg Ivpb (Pre-Docked) IVPB 250 mls/hr DAILY [facility] Administration Isosorbide Mononitrate 60 mg 10/07/18 10:00 10/08/18 10:19 Imdur - PO 60 mg DAILY [facility] Administration Levothyroxine Sodium 50 mcg 10/07/18 10:00 10/08/18 10:19 Synthroid - PO 50 mcg DAILY@0700 [facility] Administration Pantoprazole Sodium 40 mg 10/07/18 13:45 10/08/18 10:19 Protonix - PO 40 mg DAILY [facility] Administration Impression 1. hyponatremia 2. hyperkalemia 3. nausea and vomiting 4. htn 5. dm 6. hypothyroidism 7. javan vs ckd 8. fatty liver Plan - renal ultrasound reviewed - potassium improved - sodium improving - cont fluids, decrease rate
--- NOTE | 2018-10-08 17:39 | PN ---
Progress Note, Physician History of Present Illness: stable - Current Medication List Current Medications: Active Medications Carvedilol (Coreg -) 12.5 mg PO DAILY [facility] Last Admin: 10/08/18 10:19 Dose: 12.5 mg Cilostazol (Pletal -) 50 mg PO DAILY [facility] Last Admin: 10/08/18 10:22 Dose: 50 mg Glimepiride (Amaryl -) 2 mg PO ACBK [facility] Last Admin: 10/08/18 10:19 Dose: 2 mg Heparin Sodium (Porcine) (Heparin -) 5,000 unit SQ BID [facility] Last Admin: 10/08/18 10:19 Dose: 5,000 unit Ceftriaxone Sodium 1 gm/ (Dextrose) 50 mls @ 100 mls/hr IVPB DAILY [facility]; Protocol Last Admin: 10/08/18 12:32 Dose: 100 mls/hr Azithromycin (Zithromax 500mg Ivpb (Pre-Docked)) 500 mg in 250 mls @ 250 mls/ hr IVPB DAILY [facility] Last Admin: 10/08/18 10:20 Dose: 250 mls/hr Sodium Chloride (Normal Saline -) 1,000 mls @ 75 mls/hr IV ASDIR [facility] Isosorbide Mononitrate (Imdur -) 60 mg PO DAILY [facility] Last Admin: 10/08/18 10:19 Dose: 60 mg Levothyroxine Sodium (Synthroid -) 50 mcg PO DAILY@0700 [facility] Last Admin: 10/08/18 10:19 Dose: 50 mcg Pantoprazole Sodium (Protonix -) 40 mg PO DAILY [facility] Last Admin: 10/08/18 10:19 Dose: 40 mg - Objective Vital Signs: Vital Signs Temperature 97.7 F 10/08/18 16:20 Pulse Rate 77 10/08/18 16:20 Respiratory Rate 18 10/08/18 16:20 Blood Pressure 117/69 10/08/18 16:20 O2 Sat by Pulse Oximetry (%) 97 10/08/18 09:00 Constitutional: Yes: No Distress HENT: Yes: Atraumatic Neck: Yes: Supple Cardiovascular: Yes: Regular Rate and Rhythm Respiratory: Yes: CTA Bilaterally Gastrointestinal: Yes: Normal Bowel Sounds Extremities: Yes: WNL Edema: No Neurological: Yes: Alert, Oriented Labs: CBC, BMP 10/07/18 07:20 10/08/18 06:21 Problem List - Problems (1) Hyponatremia Assessment/Plan: improving Code(s): E87.1 - HYPO-OSMOLALITY AND HYPONATREMIA (2) Wheezing Code(s): R06.2 - WHEEZING (3) Hypothyroid Assessment/Plan: on meds Code(s): E03.9 - HYPOTHYROIDISM, UNSPECIFIED (4) Diabetes mellitus Assessment/Plan: monitor bs Code(s): E11.9 - TYPE 2 DIABETES MELLITUS WITHOUT COMPLICATIONS (5) HTN (hypertension) Assessment/Plan: on meds Code(s): I10 - ESSENTIAL (PRIMARY) HYPERTENSION (6) Hyperkalemia Assessment/Plan: monitor and treat renal on board Code(s): E87.5 - HYPERKALEMIA (7) Vomiting Assessment/Plan: prn zofran resolved Code(s): R11.10 - VOMITING, UNSPECIFIED Assessment/Plan spoke to daughter in detail who was at bedside
--- NOTE | 2018-10-08 20:12 | PN.GI ---
GI Progress Note Subjective: no new complaints - eating with family at the bedside. - Objective Vital Signs: Vital Signs Temperature 97.7 F 10/08/18 16:20 Pulse Rate 77 10/08/18 16:20 Respiratory Rate 18 10/08/18 16:20 Blood Pressure 117/69 10/08/18 16:20 O2 Sat by Pulse Oximetry (%) 97 10/08/18 09:00 Constitutional: Well Nourished, No Distress, Calm Eyes: Yes: WNL HENT: Yes: WNL Neck: Yes: WNL Cardiovascular: Yes: WNL Respiratory: Yes: WNL Gastrointestinal Inspection: Yes: WNL ...Auscultate: Yes: Normoactive Bowel Sounds Extremities: Yes: WNL Edema: No Labs: CBC, BMP 10/07/18 07:20 10/08/18 06:21 Problem List - Problems (1) Dysphagia Assessment/Plan: upper gi series and esophagram reviewed and wnl c/w ppi advance diet as tolerated Code(s): R13.10 - DYSPHAGIA, UNSPECIFIED (2) Nausea & vomiting Code(s): R11.2 - NAUSEA WITH VOMITING, UNSPECIFIED
[2018-10-09] MEDS ORDERED: GLIMEPIRIDE 2 MG TABLET (FP) PO SCH (07:00)
[2018-10-09] MEDS ORDERED: GLIMEPIRIDE 1 MG TABLET (FP) PO SCH (07:00)
[2018-10-09] MEDS: LEVOTHYROXINE NA 50 MCG TABLET (FP) PO SCH (07:02)
[2018-10-09] MEDS: GLIMEPIRIDE 2 MG TABLET (FP) PO SCH (08:40)
[2018-10-09 09:13] LABS: BILIRUBIN,TOTAL 0.4 mg/dL (0.2-1); BLOOD UREA NITROGEN 14.7 mg/dL (7-18); CALCIUM 8.3 mg/dL (8.5-10.1); CREATININE 1.5 mg/dL (0.55-1.3); POTASSIUM 3.9 mmol/L (3.5-5.1); TOT PROT 6.3 g/dl (6.4-8.2)
[2018-10-09] MEDS ORDERED: cefTRIAXone SODIUM 1 GM VIAL ONE (09:57)
[2018-10-09] MEDS ORDERED: DEXTROSE 5%-WATER - 50 ML IVPB ONE (09:57)
[2018-10-09] MEDS: CEFTRIAXONE 1 GM in DEXTROSE 5%-WATER - 50 ML IVPB SCH (10:03)
[2018-10-09] MEDS: CARVEDILOL 12.5 MG TABLET (FP) PO SCH (10:04)
[2018-10-09] MEDS: ISOSORBIDE MONONITRATE 60 MG TAB.SR.24H (FP) PO SCH (10:04)
[2018-10-09] MEDS: CILOSTAZOL 50 MG TABLET (FP) PO SCH (10:04)
[2018-10-09] MEDS: PANTOPRAZOLE 40 MG TABLET (FP) PO SCH (10:04)
[2018-10-09] MEDS: HEPARIN NA (PORCINE) 5,000 UNITS/ML 1ML VIAL SQ SCH ×2 (10:04→21:58)
[2018-10-09] MEDS: SODIUM CHLORIDE 1,000 ML IV SCH ×2 (10:08→21:58)
[2018-10-09] MEDS: AZITHROMYCIN IVPB 500 MG/250 ML BAG IVPB SCH (11:21)
--- NOTE | 2018-10-09 15:34 | DS ---
Physical Examination Vital Signs: Vital Signs Temperature 98.4 F 10/09/18 10:00 Pulse Rate 93 H 10/09/18 10:00 Respiratory Rate 20 10/09/18 10:00 Blood Pressure 123/82 10/09/18 10:00 O2 Sat by Pulse Oximetry (%) 98 10/09/18 09:00 Labs: CBC, BMP 10/07/18 07:20 10/09/18 08:15 Discharge Summary Reason For Visit: HYPONATREMIA Current Active Problems Diabetes mellitus (Acute) Dysphagia (Acute) HTN (hypertension) (Acute) Hyperkalemia (Acute) Hyponatremia (Acute) Hypothyroid (Acute) Nausea & vomiting (Acute) Vomiting (Acute) Wheezing (Acute) Condition: Guarded - Instructions - Home Medications Comprehensive Discharge Medication List: Ambulatory Orders Carvedilol 12.5 mg PO DAILY 10/06/18 Cilostazol 50 mg PO DAILY 10/06/18 Glimepiride 2 mg PO DAILY 10/06/18 Isosorbide Mononitrate [Isosorbide Mononitrate ER] 60 mg PO DAILY 10/06/18 Levothyroxine [Synthroid -] 50 mcg PO DAILY 10/06/18 Amoxicillin/Potassium Clav [Augmentin 875-125 Tablet] 1 each PO BID #10 tablet 10/09/18
--- NOTE | 2018-10-09 15:49 | PN ---
Progress Note, Physician History of Present Illness: Pt seen and examined at bedside. He is awake and appears comfortable. He denies shortness of breath. - Current Medication List Current Medications: Active Medications Carvedilol (Coreg -) 12.5 mg PO DAILY [facility] Last Admin: 10/09/18 10:04 Dose: 12.5 mg Cilostazol (Pletal -) 50 mg PO DAILY [facility] Last Admin: 10/09/18 10:04 Dose: 50 mg Glimepiride (Amaryl -) 2 mg PO ACBK [facility] Last Admin: 10/09/18 08:40 Dose: 2 mg Heparin Sodium (Porcine) (Heparin -) 5,000 unit SQ BID [facility] Last Admin: 10/09/18 10:04 Dose: 5,000 unit Ceftriaxone Sodium 1 gm/ (Dextrose) 50 mls @ 100 mls/hr IVPB DAILY [facility]; Protocol Last Admin: 10/09/18 10:03 Dose: 100 mls/hr Azithromycin (Zithromax 500mg Ivpb (Pre-Docked)) 500 mg in 250 mls @ 250 mls/ hr IVPB DAILY [facility] Last Admin: 10/09/18 11:21 Dose: 250 mls/hr Sodium Chloride (Normal Saline -) 1,000 mls @ 75 mls/hr IV ASDIR [facility] Last Admin: 10/09/18 10:08 Dose: 75 mls/hr Isosorbide Mononitrate (Imdur -) 60 mg PO DAILY [facility] Last Admin: 10/09/18 10:04 Dose: 60 mg Levothyroxine Sodium (Synthroid -) 50 mcg PO DAILY@0700 [facility] Last Admin: 10/09/18 07:02 Dose: 50 mcg Pantoprazole Sodium (Protonix -) 40 mg PO DAILY [facility] Last Admin: 10/09/18 10:04 Dose: 40 mg - Objective Vital Signs: Vital Signs Temperature 98.4 F 10/09/18 10:00 Pulse Rate 93 H 10/09/18 10:00 Respiratory Rate 20 10/09/18 10:00 Blood Pressure 123/82 10/09/18 10:00 O2 Sat by Pulse Oximetry (%) 98 10/09/18 09:00 Constitutional: Yes: Calm Eyes: Yes: Conjunctiva Clear HENT: Yes: Atraumatic Neck: Yes: Supple Cardiovascular: Yes: S1, S2 Respiratory: Yes: CTA Bilaterally Gastrointestinal: Yes: Soft Genitourinary: Yes: WNL Musculoskeletal: Yes: WNL Edema: No Neurological: Yes: Oriented Psychiatric: Yes: Oriented Labs: CBC, BMP 10/07/18 07:20 10/09/18 08:15 Problem List - Problems (1) Hyperkalemia Code(s): E87.5 - HYPERKALEMIA (2) HTN (hypertension) Code(s): I10 - ESSENTIAL (PRIMARY) HYPERTENSION (3) Diabetes mellitus Code(s): E11.9 - TYPE 2 DIABETES MELLITUS WITHOUT COMPLICATIONS (4) Vomiting Code(s): R11.10 - VOMITING, UNSPECIFIED (5) Hyponatremia Code(s): E87.1 - HYPO-OSMOLALITY AND HYPONATREMIA Assessment/Plan Current Medications Generic Name Dose Route Start Last Admin Trade Name Freq PRN Reason Stop Dose Admin Carvedilol 12.5 mg 10/07/18 10:00 10/09/18 10:04 Coreg - PO 12.5 mg DAILY [facility] Administration Cilostazol 50 mg 10/07/18 10:00 10/09/18 10:04 Pletal - PO 50 mg DAILY [facility] Administration Glimepiride 2 mg 10/07/18 07:00 10/09/18 08:40 Amaryl - PO 2 mg ACBK [facility] Administration Heparin Sodium (Porcine) 5,000 unit 10/06/18 22:00 10/09/18 10:04 Heparin - SQ 5,000 unit BID [facility] Administration Ceftriaxone Sodium 1 gm/ 50 mls @ 100 mls/hr 10/07/18 08:27 10/09/18 10:03 Dextrose IVPB 100 mls/hr DAILY [facility] Administration Protocol Azithromycin 500 mg in 250 mls @ 250 mls/hr 10/07/18 09:20 10/09/18 11:21 Zithromax 500mg Ivpb (Pre-Docked) IVPB 250 mls/hr DAILY [facility] Administration Sodium Chloride 1,000 mls @ 75 mls/hr 10/08/18 13:16 10/09/18 10:08 Normal Saline - IV 75 mls/hr ASDIR [facility] Administration Isosorbide Mononitrate 60 mg 10/07/18 10:00 10/09/18 10:04 Imdur - PO 60 mg DAILY [facility] Administration Levothyroxine Sodium 50 mcg 10/07/18 10:00 10/09/18 07:02 Synthroid - PO 50 mcg DAILY@0700 [facility] Administration Pantoprazole Sodium 40 mg 10/07/18 13:45 10/09/18 10:04 Protonix - PO 40 mg DAILY [facility] Administration Impression 1. hyponatremia 2. hyperkalemia 3. nausea and vomiting 4. htn 5. dm 6. hypothyroidism 7. javan vs ckd 8. fatty liver Plan - sodium improving - potassium stable - cont fluids - body cleaner remains elevated, unclear what baseline is. will continue to trend. Can see pt in office
--- NOTE | 2018-10-09 16:01 | PN ---
Progress Note, Physician - Current Medication List Current Medications: Active Medications Carvedilol (Coreg -) 12.5 mg PO DAILY [facility] Last Admin: 10/09/18 10:04 Dose: 12.5 mg Cilostazol (Pletal -) 50 mg PO DAILY [facility] Last Admin: 10/09/18 10:04 Dose: 50 mg Glimepiride (Amaryl -) 2 mg PO ACBK [facility] Last Admin: 10/09/18 08:40 Dose: 2 mg Heparin Sodium (Porcine) (Heparin -) 5,000 unit SQ BID [facility] Last Admin: 10/09/18 10:04 Dose: 5,000 unit Ceftriaxone Sodium 1 gm/ (Dextrose) 50 mls @ 100 mls/hr IVPB DAILY [facility]; Protocol Last Admin: 10/09/18 10:03 Dose: 100 mls/hr Azithromycin (Zithromax 500mg Ivpb (Pre-Docked)) 500 mg in 250 mls @ 250 mls/ hr IVPB DAILY [facility] Last Admin: 10/09/18 11:21 Dose: 250 mls/hr Sodium Chloride (Normal Saline -) 1,000 mls @ 75 mls/hr IV ASDIR [facility] Last Admin: 10/09/18 10:08 Dose: 75 mls/hr Isosorbide Mononitrate (Imdur -) 60 mg PO DAILY [facility] Last Admin: 10/09/18 10:04 Dose: 60 mg Levothyroxine Sodium (Synthroid -) 50 mcg PO DAILY@0700 [facility] Last Admin: 10/09/18 07:02 Dose: 50 mcg Pantoprazole Sodium (Protonix -) 40 mg PO DAILY [facility] Last Admin: 10/09/18 10:04 Dose: 40 mg - Objective Vital Signs: Vital Signs Temperature 98.4 F 10/09/18 10:00 Pulse Rate 93 H 10/09/18 10:00 Respiratory Rate 20 10/09/18 10:00 Blood Pressure 123/82 10/09/18 10:00 O2 Sat by Pulse Oximetry (%) 98 10/09/18 09:00 Constitutional: Yes: No Distress HENT: Yes: Atraumatic Neck: Yes: Supple Cardiovascular: Yes: Regular Rate and Rhythm Respiratory: Yes: CTA Bilaterally Gastrointestinal: Yes: Normal Bowel Sounds Extremities: Yes: WNL Edema: No Peripheral Pulses WNL: Yes Neurological: Yes: Alert, Oriented Labs: CBC, BMP 10/07/18 07:20 10/09/18 08:15 Problem List - Problems (1) Hyponatremia Assessment/Plan: improving Code(s): E87.1 - HYPO-OSMOLALITY AND HYPONATREMIA (2) Wheezing Code(s): R06.2 - WHEEZING (3) Hypothyroid Assessment/Plan: on meds Code(s): E03.9 - HYPOTHYROIDISM, UNSPECIFIED (4) Diabetes mellitus Assessment/Plan: monitor bs Code(s): E11.9 - TYPE 2 DIABETES MELLITUS WITHOUT COMPLICATIONS (5) HTN (hypertension) Assessment/Plan: on meds Code(s): I10 - ESSENTIAL (PRIMARY) HYPERTENSION (6) Hyperkalemia Assessment/Plan: monitor and treat renal on board Code(s): E87.5 - HYPERKALEMIA (7) Vomiting Assessment/Plan: prn zofran resolved Code(s): R11.10 - VOMITING, UNSPECIFIED
--- NOTE | 2018-10-09 17:47 | PN ---
Progress Note, Physician History of Present Illness: Pt seen and examined, events noted. He is alert, without SOB. at bedside states he usually has dry cough at night. Remains afebrile. - Current Medication List Current Medications: Active Medications Carvedilol (Coreg -) 12.5 mg PO DAILY [facility] Last Admin: 10/09/18 10:04 Dose: 12.5 mg Cilostazol (Pletal -) 50 mg PO DAILY [facility] Last Admin: 10/09/18 10:04 Dose: 50 mg Glimepiride (Amaryl -) 2 mg PO ACBK [facility] Last Admin: 10/09/18 08:40 Dose: 2 mg Heparin Sodium (Porcine) (Heparin -) 5,000 unit SQ BID [facility] Last Admin: 10/09/18 10:04 Dose: 5,000 unit Sodium Chloride (Normal Saline -) 1,000 mls @ 75 mls/hr IV ASDIR [facility] Last Admin: 10/09/18 10:08 Dose: 75 mls/hr Isosorbide Mononitrate (Imdur -) 60 mg PO DAILY [facility] Last Admin: 10/09/18 10:04 Dose: 60 mg Levothyroxine Sodium (Synthroid -) 50 mcg PO DAILY@0700 [facility] Last Admin: 10/09/18 07:02 Dose: 50 mcg Pantoprazole Sodium (Protonix -) 40 mg PO DAILY [facility] Last Admin: 10/09/18 10:04 Dose: 40 mg - Objective Vital Signs: Vital Signs Temperature 97.6 F 10/09/18 16:15 Pulse Rate 92 H 10/09/18 16:15 Respiratory Rate 18 10/09/18 16:15 Blood Pressure 147/75 10/09/18 16:15 O2 Sat by Pulse Oximetry (%) 98 10/09/18 09:00 Constitutional: Yes: No Distress, Calm Cardiovascular: Yes: Regular Rate and Rhythm Respiratory: Yes: CTA Bilaterally Gastrointestinal: Yes: Normal Bowel Sounds, Soft Integumentary: Yes: WNL Neurological: Yes: Alert Labs: CBC, BMP 10/07/18 07:20 10/09/18 08:15 Problem List - Problems (1) Diabetes mellitus Code(s): E11.9 - TYPE 2 DIABETES MELLITUS WITHOUT COMPLICATIONS (2) Dysphagia Code(s): R13.10 - DYSPHAGIA, UNSPECIFIED (3) HTN (hypertension) Code(s): I10 - ESSENTIAL (PRIMARY) HYPERTENSION (4) Nausea & vomiting Code(s): R11.2 - NAUSEA WITH VOMITING, UNSPECIFIED Assessment/Plan Cough N/V DM HTN HLD Hypothyroidism -- d/c Ceftriaxone/Azithromycin, switch to Augmentin 500 mg po bid x 3 days starting tomorrow -- pt for discharge currently stable
[2018-10-10] MEDS: SODIUM CHLORIDE 1,000 ML IV SCH (01:59)
[2018-10-10] MEDS: GLIMEPIRIDE 2 MG TABLET (FP) PO SCH (06:04)
[2018-10-10] MEDS: LEVOTHYROXINE NA 50 MCG TABLET (FP) PO SCH (06:04)
[2018-10-10] MEDS ORDERED: AMOX TR/POT CLAV 500MG/125MG TABLETS (FP) PO SCH (08:00)
[2018-10-10] MEDS ORDERED: PT OWN MED DRAWER 7, Y5N ONE (09:03)
[2018-10-10] MEDS: CARVEDILOL 12.5 MG TABLET (FP) PO SCH (09:07)
[2018-10-10] MEDS: HEPARIN NA (PORCINE) 5,000 UNITS/ML 1ML VIAL SQ SCH ×2 (09:07→22:17)
[2018-10-10] MEDS: ISOSORBIDE MONONITRATE 60 MG TAB.SR.24H (FP) PO SCH (09:07)
[2018-10-10] MEDS: PANTOPRAZOLE 40 MG TABLET (FP) PO SCH (09:07)
[2018-10-10] MEDS: CILOSTAZOL 50 MG TABLET (FP) PO SCH (09:09)
[2018-10-10] MEDS ORDERED: ALBUTEROL SO4 0.083% IH SOL 2.5 MG/3 ML VIAL.NEB. NEB ONE (10:00)
--- NOTE | 2018-10-10 10:38 | CONSULT ---
Admitting History and Physical - Primary Care Physician PCP: Che Bethea - Admission History of Present Illness: 87 y/o M with PMHx of DM, Arthritis, Stroke, HTN, HLD, Hypothyroidism presents with 2 day hx of nausea and NBNB vomiting. Selected Entries 10/08/18 10/09/18 10/09/18 18:30 06:47 10:00 Breakfast 25% Diet Tolerated Well Lunch 50% Supper 75% Temperature 97.7 F 98.4 F 10/09/18 10/09/18 10/09/18 16:15 18:30 22:00 Breakfast Diet Tolerated Well Lunch Supper 75% Temperature 97.6 F 97.8 F 10/10/18 06:54 Breakfast Diet Tolerated Lunch Supper Temperature 97.4 F L Laboratory Tests 10/07/18 07:20 WBC 5.0 Advanced to soft diet/thin liquids. Nursing reports pt has been coughing, noted with and without meals, possibly more so with meals. UGI/esophagram unremarkable. Rapid Response called before pt examined, cold and clammy. Placed on NR. Assessment deferred. - Past Medical History Cardiovascular: Yes: HTN, Hyperlipdemia Endocrine: Yes: Diabetes Mellitus, Hypothyroidism - Smoking History Smoking history: Never smoked - Alcohol/Substance Use Hx Alcohol Use: No History - Admission Reason For Visit: HYPONATREMIA - Diagnostics X-ray: Report Reviewed (10/06 noted. Repeat CXR pending) - Hearing Hearing: Impaired Hearing Aide: No
--- NOTE | 2018-10-10 10:53 | RAPID ---
Physical Examination Vital Signs: Vital Signs Temperature 97.4 F L 10/10/18 06:54 Pulse Rate 90 10/10/18 06:54 Respiratory Rate 20 10/10/18 06:54 Blood Pressure 157/87 10/10/18 06:54 O2 Sat by Pulse Oximetry (%) 98 10/09/18 21:00 Findings/Remarks: Called to evaluate patient for oxygen desaturation. Patient placed on nonrebreather. Sat at 66, over time saturation increased to 98. On evaluation 167/103, 98% hr 111 171/115 99 on norebreather A: crackles b/l bases, patient clammy and damp Plan CXR ABG, CBC, CMP hold fluids, lasix 40 given, imbur 30 ordered continue oxygen supplementation to keep above 90% will transfer patient to tele for closer monitoring Labs: CBC, BMP 10/07/18 07:20 10/09/18 08:15
[2018-10-10] MEDS ORDERED: FUROSEMIDE 40 MG/4 ML INJECTABLE VIAL IVPB ONE (11:00)
[2018-10-10 11:14] LABS: ARTERIAL BLD GAS O2 SATURATION 97.7 % (95-98); ARTERIAL BLOOD GAS PCO2 39.4 mmHg (35-45); ARTERIAL BLOOD GAS PO2 123 mmHg (80-105); ARTERIAL BLOOD GAS pH 7.28 (7.35-7.45)
[2018-10-10 11:17] LABS: ALLENS TEST POSITIVE
[2018-10-10] MEDS ORDERED: ISOSORBIDE MONONITRATE 30 MG TAB.SR.24H (FP) PO ONE (11:30)
--- NOTE | 2018-10-10 11:41 | PN ---
Progress Note, Physician History of Present Illness: events noted - Current Medication List Current Medications: Active Medications Amoxicillin/Clavulanate Potassium (Augmentin - 500mg Tablet) 1 tab PO BID@0800, 1730 [facility] Last Admin: 10/10/18 09:00 Dose: 1 tab Carvedilol (Coreg -) 12.5 mg PO DAILY [facility] Last Admin: 10/10/18 09:07 Dose: 12.5 mg Cilostazol (Pletal -) 50 mg PO DAILY [facility] Last Admin: 10/10/18 09:09 Dose: 50 mg Glimepiride (Amaryl -) 2 mg PO ACBK [facility] Last Admin: 10/10/18 06:04 Dose: 2 mg Heparin Sodium (Porcine) (Heparin -) 5,000 unit SQ BID [facility] Last Admin: 10/10/18 09:07 Dose: 5,000 unit Isosorbide Mononitrate (Imdur -) 60 mg PO DAILY [facility] Last Admin: 10/10/18 09:07 Dose: 60 mg Levothyroxine Sodium (Synthroid -) 50 mcg PO DAILY@0700 [facility] Last Admin: 10/10/18 06:04 Dose: 50 mcg Pantoprazole Sodium (Protonix -) 40 mg PO DAILY [facility] Last Admin: 10/10/18 09:07 Dose: 40 mg - Objective Vital Signs: Vital Signs Temperature 97.4 F L 10/10/18 06:54 Pulse Rate 90 10/10/18 06:54 Respiratory Rate 20 10/10/18 06:54 Blood Pressure 157/87 10/10/18 06:54 O2 Sat by Pulse Oximetry (%) 98 10/09/18 21:00 Labs: CBC, BMP 10/07/18 07:20 10/09/18 08:15
[2018-10-10 12:15] LABS: BASO % 1.2 % (0-2.0); EOS % 0.4 % (0-4.5); HEMATOCRIT 36.7 % (35.4-49); MCH 31.7 pg (25.7-33.7); MCHC 32.8 g/dl (32.0-35.9); MEAN CELL VOLUME 96.6 fl (80-96); MEAN PLT VOLUME 8.2 fl (7.5-11.1); MONO % 12.5 % (3.8-10.2); NEUT % 66.9 % (42.8-82.8); WHITE BLOOD COUNT 4.6 K/mm3 (4.0-10.0)
[2018-10-10 12:21] LABS: PLATELET COUNT 242 K/MM3 (134-434)
[2018-10-10 12:45] LABS: ALBUMIN 3.2 g/dl (3.4-5.0); BILIRUBIN,TOTAL 0.7 mg/dL (0.2-1); BLOOD UREA NITROGEN 15.9 mg/dL (7-18); CALCIUM 8.4 mg/dL (8.5-10.1); CREATININE 1.9 mg/dL (0.55-1.3); POTASSIUM 3.7 mmol/L (3.5-5.1); TOT PROT 6.8 g/dl (6.4-8.2)
--- NOTE | 2018-10-10 13:37 | PN ---
Progress Note, Physician History of Present Illness: events noted better now - Current Medication List Current Medications: Active Medications Amoxicillin/Clavulanate Potassium (Augmentin - 500mg Tablet) 1 tab PO BID@0800, 1730 [facility] Last Admin: 10/10/18 09:00 Dose: 1 tab Carvedilol (Coreg -) 12.5 mg PO DAILY [facility] Last Admin: 10/10/18 09:07 Dose: 12.5 mg Cilostazol (Pletal -) 50 mg PO DAILY [facility] Last Admin: 10/10/18 09:09 Dose: 50 mg Glimepiride (Amaryl -) 2 mg PO ACBK [facility] Last Admin: 10/10/18 06:04 Dose: 2 mg Heparin Sodium (Porcine) (Heparin -) 5,000 unit SQ BID [facility] Last Admin: 10/10/18 09:07 Dose: 5,000 unit Isosorbide Mononitrate (Imdur -) 60 mg PO DAILY [facility] Last Admin: 10/10/18 09:07 Dose: 60 mg Levothyroxine Sodium (Synthroid -) 50 mcg PO DAILY@0700 [facility] Last Admin: 10/10/18 06:04 Dose: 50 mcg Pantoprazole Sodium (Protonix -) 40 mg PO DAILY [facility] Last Admin: 10/10/18 09:07 Dose: 40 mg - Objective Vital Signs: Vital Signs Temperature 98.3 F 10/10/18 09:00 Pulse Rate 111 H 10/10/18 10:00 Respiratory Rate 20 10/10/18 10:00 Blood Pressure 167/103 H 10/10/18 10:00 O2 Sat by Pulse Oximetry (%) 98 10/09/18 21:00 Constitutional: Yes: No Distress HENT: Yes: Atraumatic Neck: Yes: Supple Cardiovascular: Yes: Regular Rate and Rhythm Respiratory: Yes: CTA Bilaterally Gastrointestinal: Yes: Normal Bowel Sounds Extremities: Yes: WNL Edema: No Peripheral Pulses WNL: Yes Neurological: Yes: Alert, Oriented Labs: CBC, BMP 10/10/18 11:24 10/10/18 11:24 Problem List - Problems (1) Hyponatremia Assessment/Plan: improving Code(s): E87.1 - HYPO-OSMOLALITY AND HYPONATREMIA (2) Wheezing Code(s): R06.2 - WHEEZING (3) Hypothyroid Assessment/Plan: on meds Code(s): E03.9 - HYPOTHYROIDISM, UNSPECIFIED (4) Diabetes mellitus Assessment/Plan: monitor bs Code(s): E11.9 - TYPE 2 DIABETES MELLITUS WITHOUT COMPLICATIONS (5) HTN (hypertension) Assessment/Plan: on meds Code(s): I10 - ESSENTIAL (PRIMARY) HYPERTENSION (6) Hyperkalemia Assessment/Plan: wnl now Code(s): E87.5 - HYPERKALEMIA (7) Vomiting Assessment/Plan: prn zofran resolved Code(s): R11.10 - VOMITING, UNSPECIFIED (8) Fluid overload Assessment/Plan: dc ivf iv lasix breathing much better Code(s): E87.70 - FLUID OVERLOAD, UNSPECIFIED
[2018-10-10 14:05] LABS: ANISOCYTOSIS 1+; MACROCYTOSIS 1+; OVALOCYTE 1+; PLATELET ESTIMATE NORMAL
--- NOTE | 2018-10-10 15:27 | PN ---
Progress Note, Physician History of Present Illness: Pt seen and examined at bedside. He was hypertensive and short of breath this morning. Rapid response was called and he was transferred to tele. - Current Medication List Current Medications: Active Medications Amoxicillin/Clavulanate Potassium (Augmentin - 500mg Tablet) 1 tab PO BID@0800, 1730 [facility] Carvedilol (Coreg -) 12.5 mg PO DAILY [facility] Cilostazol (Pletal -) 50 mg PO DAILY [facility] Glimepiride (Amaryl -) 2 mg PO ACBK [facility] Heparin Sodium (Porcine) (Heparin -) 5,000 unit SQ BID [facility] Isosorbide Mononitrate (Imdur -) 60 mg PO DAILY [facility] Levothyroxine Sodium (Synthroid -) 50 mcg PO DAILY@0700 [facility] Pantoprazole Sodium (Protonix -) 40 mg PO DAILY [facility] - Objective Vital Signs: Vital Signs Temperature 98.3 F 10/10/18 09:00 Pulse Rate 111 H 10/10/18 10:00 Respiratory Rate 20 10/10/18 10:00 Blood Pressure 167/103 H 10/10/18 10:00 O2 Sat by Pulse Oximetry (%) 98 10/09/18 21:00 Constitutional: Yes: Calm Eyes: Yes: Conjunctiva Clear HENT: Yes: Atraumatic Neck: Yes: Supple Cardiovascular: Yes: S1, S2 Respiratory: Yes: On Venti-Mask Gastrointestinal: Yes: Soft Genitourinary: Yes: WNL Musculoskeletal: Yes: WNL Edema: LLE: Trace, RLE: Trace Neurological: Yes: Oriented Psychiatric: Yes: Oriented Labs: CBC, BMP 10/10/18 11:24 10/10/18 11:24 Problem List - Problems (1) Hyperkalemia Code(s): E87.5 - HYPERKALEMIA (2) HTN (hypertension) Code(s): I10 - ESSENTIAL (PRIMARY) HYPERTENSION (3) Diabetes mellitus Code(s): E11.9 - TYPE 2 DIABETES MELLITUS WITHOUT COMPLICATIONS (4) Vomiting Code(s): R11.10 - VOMITING, UNSPECIFIED (5) Hyponatremia Code(s): E87.1 - HYPO-OSMOLALITY AND HYPONATREMIA Assessment/Plan Current Medications Generic Name Dose Route Start Last Admin Trade Name Freq PRN Reason Stop Dose Admin Amoxicillin/Clavulanate Potassium 1 tab 06/14/19 17:30 Augmentin - 500mg Tablet PO BID@0800,1730 [facility] Carvedilol 12.5 mg 10/11/18 10:00 Coreg - PO DAILY [facility] Cilostazol 50 mg 10/11/18 10:00 Pletal - PO DAILY [facility] Glimepiride 2 mg 10/11/18 07:00 Amaryl - PO ACBK [facility] Heparin Sodium (Porcine) 5,000 unit 10/10/18 22:00 Heparin - SQ BID [facility] Isosorbide Mononitrate 60 mg 10/11/18 10:00 Imdur - PO DAILY [facility] Levothyroxine Sodium 50 mcg 10/11/18 07:00 Synthroid - PO DAILY@0700 [facility] Pantoprazole Sodium 40 mg 10/11/18 10:00 Protonix - PO DAILY [facility] Impression 1. hyponatremia 2. hyperkalemia 3. nausea and vomiting 4. htn 5. dm 6. hypothyroidism 7. javan vs ckd 8. fatty liver Plan - d/c fluids - will give another dose of lasix - increase coreg to 25 bid - monitor bp closely - monitor lyjarrett
[2018-10-10] MEDS ORDERED: FUROSEMIDE 40 MG/4 ML INJECTABLE VIAL IVPUSH ONE (15:45)
[2018-10-10] MEDS: AMOX TR/POT CLAV 500MG/125MG TABLETS (FP) PO SCH (18:55)
[2018-10-10] MEDS ORDERED: CARVEDILOL 12.5 MG TABLET (FP) PO SCH (22:00)
[2018-10-10] MEDS: CARVEDILOL 25 MG TABLET (FP) PO SCH (22:13)
[2018-10-11] MEDS: LEVOTHYROXINE NA 50 MCG TABLET (FP) PO SCH (06:41)
[2018-10-11] MEDS: GLIMEPIRIDE 2 MG TABLET (FP) PO SCH (06:41)
[2018-10-11] MEDS: AMOX TR/POT CLAV 500MG/125MG TABLETS (FP) PO SCH ×2 (09:29→17:44)
[2018-10-11] MEDS: ISOSORBIDE MONONITRATE 60 MG TAB.SR.24H (FP) PO SCH (09:30)
[2018-10-11] MEDS: CARVEDILOL 25 MG TABLET (FP) PO SCH ×2 (09:30→22:51)
[2018-10-11] MEDS: HEPARIN NA (PORCINE) 5,000 UNITS/ML 1ML VIAL SQ SCH ×2 (09:30→22:51)
[2018-10-11] MEDS: PANTOPRAZOLE 40 MG TABLET (FP) PO SCH (09:31)
[2018-10-11] MEDS: CILOSTAZOL 50 MG TABLET (FP) PO SCH (09:31)
[2018-10-11] MEDS ORDERED: CARVEDILOL 12.5 MG TABLET (FP) PO SCH (10:00)
[2018-10-11] MEDS ORDERED: ISOSORBIDE MONONITRATE 30 MG TAB.SR.24H (FP) PO ONE (10:58)
[2018-10-11] MEDS ORDERED: FUROSEMIDE 40 MG/4 ML INJECTABLE VIAL IVPB ONE (11:00)
--- NOTE | 2018-10-11 11:52 | PN ---
Progress Note (short form) - Note Progress Note: 1. hyponatremia 2. hyperkalemia 3. nausea and vomiting 4. htn 5. dm 6. hypothyroidism 7. javan vs ckd 8. fatty liver Active Medications Amoxicillin/Clavulanate Potassium (Augmentin - 500mg Tablet) 1 tab PO BID@0800, 1730 [facility] Last Admin: 10/11/18 09:29 Dose: Not Given Carvedilol (Coreg -) 25 mg PO BID [facility] Last Admin: 10/11/18 09:30 Dose: Not Given Cilostazol (Pletal -) 50 mg PO DAILY [facility] Last Admin: 10/11/18 09:31 Dose: Not Given Glimepiride (Amaryl -) 2 mg PO ACBK [facility] Last Admin: 10/11/18 06:41 Dose: Not Given Heparin Sodium (Porcine) (Heparin -) 5,000 unit SQ BID [facility] Last Admin: 10/11/18 09:30 Dose: 5,000 unit Isosorbide Mononitrate (Imdur -) 60 mg PO DAILY [facility] Last Admin: 10/11/18 09:30 Dose: Not Given Levothyroxine Sodium (Synthroid -) 50 mcg PO DAILY@0700 [facility] Last Admin: 10/11/18 06:41 Dose: Not Given Pantoprazole Sodium (Protonix -) 40 mg PO DAILY [facility] Last Admin: 10/11/18 09:31 Dose: Not Given lying flate denies sob Last Vital Signs Temp Pulse Resp BP Pulse Ox 98.5 F 72 20 106/64 100 10/11/18 10:00 10/11/18 10:00 10/11/18 10:00 10/11/18 10:00 10/11/18 09:00 lungs clear heart reg abd soft nontender CBC, BMP 10/10/18 11:24 10/10/18 11:24 IMP
--- NOTE | 2018-10-11 14:13 | PN ---
Progress Note, Physician - Current Medication List Current Medications: Active Medications Amoxicillin/Clavulanate Potassium (Augmentin - 500mg Tablet) 1 tab PO BID@0800, 1730 [facility] Last Admin: 10/11/18 09:29 Dose: Not Given Carvedilol (Coreg -) 25 mg PO BID [facility] Last Admin: 10/11/18 09:30 Dose: Not Given Cilostazol (Pletal -) 50 mg PO DAILY [facility] Last Admin: 10/11/18 09:31 Dose: Not Given Glimepiride (Amaryl -) 2 mg PO ACBK [facility] Last Admin: 10/11/18 06:41 Dose: Not Given Heparin Sodium (Porcine) (Heparin -) 5,000 unit SQ BID [facility] Last Admin: 10/11/18 09:30 Dose: 5,000 unit Isosorbide Mononitrate (Imdur -) 60 mg PO DAILY [facility] Last Admin: 10/11/18 09:30 Dose: Not Given Levothyroxine Sodium (Synthroid -) 50 mcg PO DAILY@0700 [facility] Last Admin: 10/11/18 06:41 Dose: Not Given Pantoprazole Sodium (Protonix -) 40 mg PO DAILY [facility] Last Admin: 10/11/18 09:31 Dose: Not Given - Objective Vital Signs: Vital Signs Temperature 98.5 F 10/11/18 10:00 Pulse Rate 72 10/11/18 10:00 Respiratory Rate 20 10/11/18 10:00 Blood Pressure 106/64 10/11/18 10:00 O2 Sat by Pulse Oximetry (%) 100 10/11/18 09:00 Labs: CBC, BMP 10/10/18 11:24 10/10/18 11:24
--- NOTE | 2018-10-11 14:18 | PN ---
Progress Note, Physician History of Present Illness: feeling better - Current Medication List Current Medications: Active Medications Amoxicillin/Clavulanate Potassium (Augmentin - 500mg Tablet) 1 tab PO BID@0800, 1730 [facility] Last Admin: 10/11/18 09:29 Dose: Not Given Carvedilol (Coreg -) 25 mg PO BID [facility] Last Admin: 10/11/18 09:30 Dose: Not Given Cilostazol (Pletal -) 50 mg PO DAILY [facility] Last Admin: 10/11/18 09:31 Dose: Not Given Glimepiride (Amaryl -) 2 mg PO ACBK [facility] Last Admin: 10/11/18 06:41 Dose: Not Given Heparin Sodium (Porcine) (Heparin -) 5,000 unit SQ BID [facility] Last Admin: 10/11/18 09:30 Dose: 5,000 unit Isosorbide Mononitrate (Imdur -) 60 mg PO DAILY [facility] Last Admin: 10/11/18 09:30 Dose: Not Given Levothyroxine Sodium (Synthroid -) 50 mcg PO DAILY@0700 [facility] Last Admin: 10/11/18 06:41 Dose: Not Given Pantoprazole Sodium (Protonix -) 40 mg PO DAILY [facility] Last Admin: 10/11/18 09:31 Dose: Not Given - Objective Vital Signs: Vital Signs Temperature 98.5 F 10/11/18 10:00 Pulse Rate 72 10/11/18 10:00 Respiratory Rate 20 10/11/18 10:00 Blood Pressure 106/64 10/11/18 10:00 O2 Sat by Pulse Oximetry (%) 100 10/11/18 09:00 Constitutional: Yes: No Distress HENT: Yes: Atraumatic Neck: Yes: Supple Cardiovascular: Yes: Regular Rate and Rhythm Respiratory: Yes: Rhonchi Gastrointestinal: Yes: Normal Bowel Sounds Extremities: Yes: WNL Neurological: Yes: Alert, Oriented Labs: CBC, BMP 10/10/18 11:24 10/10/18 11:24 Problem List - Problems (1) Hyponatremia Assessment/Plan: improving Code(s): E87.1 - HYPO-OSMOLALITY AND HYPONATREMIA (2) Wheezing Code(s): R06.2 - WHEEZING (3) Hypothyroid Assessment/Plan: on meds Code(s): E03.9 - HYPOTHYROIDISM, UNSPECIFIED (4) Diabetes mellitus Assessment/Plan: monitor bs Code(s): E11.9 - TYPE 2 DIABETES MELLITUS WITHOUT COMPLICATIONS (5) HTN (hypertension) Code(s): I10 - ESSENTIAL (PRIMARY) HYPERTENSION (6) Hyperkalemia Assessment/Plan: wnl now Code(s): E87.5 - HYPERKALEMIA (7) Vomiting Assessment/Plan: prn zofran resolved Code(s): R11.10 - VOMITING, UNSPECIFIED (8) Fluid overload Assessment/Plan: breathing much improved on iv lasix Code(s): E87.70 - FLUID OVERLOAD, UNSPECIFIED
[2018-10-12] MEDS ORDERED: PT OWN MED DRAWER 7, Y5N ONE ×3 (05:26→09:00)
[2018-10-12] MEDS: LEVOTHYROXINE NA 50 MCG TABLET (FP) PO SCH (06:07)
[2018-10-12] MEDS: GLIMEPIRIDE 2 MG TABLET (FP) PO SCH (06:07)
[2018-10-12 07:47] LABS: HEMOGLOBIN 10.6 GM/dL (11.7-16.9); RDW 13.2 % (11.9-15.9)
[2018-10-12 08:10] LABS: ALBUMIN 2.6 g/dl (3.4-5.0); BILIRUBIN,TOTAL 0.4 mg/dL (0.2-1); BLOOD UREA NITROGEN 25.6 mg/dL (7-18); CALCIUM 8.4 mg/dL (8.5-10.1); CREATININE 1.6 mg/dL (0.55-1.3); POTASSIUM 3.1 mmol/L (3.5-5.1); TOT PROT 5.5 g/dl (6.4-8.2)
[2018-10-12 08:53] LABS: BASO % 2.7 % (0-2.0); EOS % 4.1 % (0-4.5); HEMATOCRIT 32.1 % (35.4-49); LYMPH % 30.3 % (8-40); MCH 31.3 pg (25.7-33.7); MEAN CELL VOLUME 94.7 fl (80-96); MONO % 11.9 % (3.8-10.2); RBC 3.39 M/mm3 (4.00-5.60)
[2018-10-12 08:54] LABS: PLATELET COUNT 221 K/MM3 (134-434)
[2018-10-12] MEDS: AMOX TR/POT CLAV 500MG/125MG TABLETS (FP) PO SCH ×2 (09:24→17:08)
[2018-10-12] MEDS: CARVEDILOL 25 MG TABLET (FP) PO SCH ×2 (09:25→22:03)
[2018-10-12] MEDS: ISOSORBIDE MONONITRATE 60 MG TAB.SR.24H (FP) PO SCH (09:25)
[2018-10-12] MEDS: CILOSTAZOL 50 MG TABLET (FP) PO SCH (09:25)
[2018-10-12] MEDS: HEPARIN NA (PORCINE) 5,000 UNITS/ML 1ML VIAL SQ SCH ×2 (09:25→22:03)
[2018-10-12] MEDS: PANTOPRAZOLE 40 MG TABLET (FP) PO SCH (09:26)
--- NOTE | 2018-10-12 12:18 | PN ---
Progress Note, Physician History of Present Illness: feeling better - Current Medication List Current Medications: Active Medications Amoxicillin/Clavulanate Potassium (Augmentin - 500mg Tablet) 1 tab PO BID@0800, 1730 [facility] Last Admin: 10/12/18 09:24 Dose: 1 tab Carvedilol (Coreg -) 25 mg PO BID [facility] Last Admin: 10/12/18 09:25 Dose: 25 mg Cilostazol (Pletal -) 50 mg PO DAILY [facility] Last Admin: 10/12/18 09:25 Dose: 50 mg Glimepiride (Amaryl -) 2 mg PO ACBK [facility] Last Admin: 10/12/18 06:07 Dose: 2 mg Heparin Sodium (Porcine) (Heparin -) 5,000 unit SQ BID [facility] Last Admin: 10/12/18 09:25 Dose: 5,000 unit Isosorbide Mononitrate (Imdur -) 60 mg PO DAILY [facility] Last Admin: 10/12/18 09:25 Dose: 60 mg Levothyroxine Sodium (Synthroid -) 50 mcg PO DAILY@0700 [facility] Last Admin: 10/12/18 06:07 Dose: 50 mcg Pantoprazole Sodium (Protonix -) 40 mg PO DAILY [facility] Last Admin: 10/12/18 09:26 Dose: 40 mg - Objective Vital Signs: Vital Signs Temperature 97.7 F 10/12/18 09:23 Pulse Rate 63 10/12/18 09:23 Respiratory Rate 18 10/12/18 09:23 Blood Pressure 124/60 10/12/18 09:23 O2 Sat by Pulse Oximetry (%) 100 10/12/18 09:00 Constitutional: Yes: No Distress HENT: Yes: Atraumatic Neck: Yes: Supple Cardiovascular: Yes: Regular Rate and Rhythm Respiratory: Yes: CTA Bilaterally Gastrointestinal: Yes: Normal Bowel Sounds Extremities: Yes: WNL Edema: No Peripheral Pulses WNL: Yes Neurological: Yes: Alert, Oriented Labs: CBC, BMP 10/12/18 06:32 10/12/18 06:00 Problem List - Problems (1) Hyponatremia Assessment/Plan: resolved Code(s): E87.1 - HYPO-OSMOLALITY AND HYPONATREMIA (2) Wheezing Code(s): R06.2 - WHEEZING (3) Hypothyroid Assessment/Plan: on meds Code(s): E03.9 - HYPOTHYROIDISM, UNSPECIFIED (4) Diabetes mellitus Assessment/Plan: monitor bs Code(s): E11.9 - TYPE 2 DIABETES MELLITUS WITHOUT COMPLICATIONS (5) HTN (hypertension) Assessment/Plan: on meds Code(s): I10 - ESSENTIAL (PRIMARY) HYPERTENSION (6) Hyperkalemia Assessment/Plan: wnl now Code(s): E87.5 - HYPERKALEMIA (7) Vomiting Assessment/Plan: prn zofran resolved Code(s): R11.10 - VOMITING, UNSPECIFIED (8) Fluid overload Assessment/Plan: breathing much improved Code(s): E87.70 - FLUID OVERLOAD, UNSPECIFIED
--- NOTE | 2018-10-12 13:46 | PN ---
Progress Note, Physician History of Present Illness: patient stable no new issues - Current Medication List Current Medications: Active Medications Amoxicillin/Clavulanate Potassium (Augmentin - 500mg Tablet) 1 tab PO BID@0800, 1730 [facility] Last Admin: 10/12/18 09:24 Dose: 1 tab Carvedilol (Coreg -) 25 mg PO BID [facility] Last Admin: 10/12/18 09:25 Dose: 25 mg Cilostazol (Pletal -) 50 mg PO DAILY [facility] Last Admin: 10/12/18 09:25 Dose: 50 mg Glimepiride (Amaryl -) 2 mg PO ACBK [facility] Last Admin: 10/12/18 06:07 Dose: 2 mg Heparin Sodium (Porcine) (Heparin -) 5,000 unit SQ BID [facility] Last Admin: 10/12/18 09:25 Dose: 5,000 unit Isosorbide Mononitrate (Imdur -) 60 mg PO DAILY [facility] Last Admin: 10/12/18 09:25 Dose: 60 mg Levothyroxine Sodium (Synthroid -) 50 mcg PO DAILY@0700 [facility] Last Admin: 10/12/18 06:07 Dose: 50 mcg Pantoprazole Sodium (Protonix -) 40 mg PO DAILY [facility] Last Admin: 10/12/18 09:26 Dose: 40 mg - Objective Vital Signs: Vital Signs Temperature 97.7 F 10/12/18 09:23 Pulse Rate 63 10/12/18 09:23 Respiratory Rate 18 10/12/18 09:23 Blood Pressure 124/60 10/12/18 09:23 O2 Sat by Pulse Oximetry (%) 100 10/12/18 09:00 Constitutional: Yes: No Distress, Calm Cardiovascular: Yes: Regular Rate and Rhythm Respiratory: Yes: Regular, CTA Bilaterally Gastrointestinal: Yes: Normal Bowel Sounds, Soft Musculoskeletal: Yes: WNL Extremities: Yes: WNL Labs: CBC, BMP 10/12/18 06:32 10/12/18 06:00 Assessment/Plan Problem List - Problems (1) Hyponatremia Code(s): E87.1 - HYPO-OSMOLALITY AND HYPONATREMIA (2) Wheezing Code(s): R06.2 - WHEEZING 3 vomiting cough plan continue current mgmt await for all reports rest as per the team
[2018-10-12] MEDS ORDERED: POTASSIUM CHLORIDE ORAL LIQUID 20 MEQ/15 ML PO ONE (14:45)
--- NOTE | 2018-10-12 18:32 | PN ---
Progress Note (short form) - Note Progress Note: 1. hyponatremia 2. hyperkalemia 3. nausea and vomiting 4. htn 5. dm 6. hypothyroidism 7. javan vs ckd 8. fatty liver Current Medications Amoxicillin/Clavulanate Potassium (Augmentin - 500mg Tablet) 1 tab PO BID@0800, 1730 [facility] Last Admin: 10/12/18 17:08 Dose: 1 tab Carvedilol (Coreg -) 25 mg PO BID [facility] Last Admin: 10/12/18 09:25 Dose: 25 mg Cilostazol (Pletal -) 50 mg PO DAILY [facility] Last Admin: 10/12/18 09:25 Dose: 50 mg Glimepiride (Amaryl -) 2 mg PO ACBK [facility] Last Admin: 10/12/18 06:07 Dose: 2 mg Heparin Sodium (Porcine) (Heparin -) 5,000 unit SQ BID [facility] Last Admin: 10/12/18 09:25 Dose: 5,000 unit Isosorbide Mononitrate (Imdur -) 60 mg PO DAILY [facility] Last Admin: 10/12/18 09:25 Dose: 60 mg Levothyroxine Sodium (Synthroid -) 50 mcg PO DAILY@0700 [facility] Last Admin: 10/12/18 06:07 Dose: 50 mcg Pantoprazole Sodium (Protonix -) 40 mg PO DAILY [facility] Last Admin: 10/12/18 09:26 Dose: 40 mg Potassium Chloride (Potassium Chloride Oral Liquid) 40 meq PO ONCE ONE Stop: 10/13/18 10:01 lying flate denies sob Last Vital Signs Temp Pulse Resp BP Pulse Ox 97.9 F 58 L 20 107/54 L 100 10/12/18 17:00 10/12/18 17:00 10/12/18 17:00 10/12/18 17:00 10/12/18 09:00 lungs clear heart reg abd soft nontender CBC, BMP 10/12/18 06:32 10/12/18 06:00 CBC, BMP 10/10/18 11:24 10/10/18 11:24 IMP hyponatremi resolving new hypokalemia- k replaced plan - continue present rx
[2018-10-13] MEDS: LEVOTHYROXINE NA 50 MCG TABLET (FP) PO SCH (06:32)
[2018-10-13] MEDS: GLIMEPIRIDE 2 MG TABLET (FP) PO SCH (06:32)
[2018-10-13] MEDS: AMOX TR/POT CLAV 500MG/125MG TABLETS (FP) PO SCH (08:14)
[2018-10-13 08:22] LABS: CALCIUM 8.4 mg/dL (8.5-10.1); CREATININE 1.7 mg/dL (0.55-1.3); POTASSIUM 3.8 mmol/L (3.5-5.1)
[2018-10-13] MEDS ORDERED: PT OWN MED DRAWER 7, Y5N ONE (09:17)
[2018-10-13] MEDS: CARVEDILOL 25 MG TABLET (FP) PO SCH (09:42)
[2018-10-13] MEDS: HEPARIN NA (PORCINE) 5,000 UNITS/ML 1ML VIAL SQ SCH (09:42)
[2018-10-13] MEDS: ISOSORBIDE MONONITRATE 60 MG TAB.SR.24H (FP) PO SCH (09:42)
[2018-10-13] MEDS: PANTOPRAZOLE 40 MG TABLET (FP) PO SCH (09:42)
[2018-10-13] MEDS: CILOSTAZOL 50 MG TABLET (FP) PO SCH (09:43)
--- NOTE | 2018-10-13 09:59 | PN ---
Progress Note, Physician History of Present Illness: Pt seen and examined at bedside. He is awake and appears comfortable. He denies shortness of breath. - Current Medication List Current Medications: Active Medications Amoxicillin/Clavulanate Potassium (Augmentin - 500mg Tablet) 1 tab PO BID@0800, 1730 [facility] Last Admin: 10/13/18 08:14 Dose: 1 tab Carvedilol (Coreg -) 25 mg PO BID [facility] Last Admin: 10/13/18 09:42 Dose: 25 mg Cilostazol (Pletal -) 50 mg PO DAILY [facility] Last Admin: 10/13/18 09:43 Dose: 50 mg Glimepiride (Amaryl -) 2 mg PO ACBK [facility] Last Admin: 10/13/18 06:32 Dose: 2 mg Heparin Sodium (Porcine) (Heparin -) 5,000 unit SQ BID [facility] Last Admin: 10/13/18 09:42 Dose: 5,000 unit Isosorbide Mononitrate (Imdur -) 60 mg PO DAILY [facility] Last Admin: 10/13/18 09:42 Dose: 60 mg Levothyroxine Sodium (Synthroid -) 50 mcg PO DAILY@0700 [facility] Last Admin: 10/13/18 06:32 Dose: 50 mcg Pantoprazole Sodium (Protonix -) 40 mg PO DAILY [facility] Last Admin: 10/13/18 09:42 Dose: 40 mg Potassium Chloride (Potassium Chloride Oral Liquid) 40 meq PO ONCE ONE Stop: 10/13/18 10:01 Last Admin: 10/13/18 09:45 Dose: 40 meq - Objective Vital Signs: Vital Signs Temperature 97.6 F 10/13/18 06:00 Pulse Rate 62 10/13/18 06:00 Respiratory Rate 20 10/13/18 06:00 Blood Pressure 130/61 10/13/18 06:00 O2 Sat by Pulse Oximetry (%) 98 10/12/18 22:00 Constitutional: Yes: Calm Eyes: Yes: Conjunctiva Clear HENT: Yes: Atraumatic Neck: Yes: Supple Cardiovascular: Yes: S1, S2 Respiratory: Yes: CTA Bilaterally, On Nasal O2 Gastrointestinal: Yes: Soft Genitourinary: Yes: WNL Musculoskeletal: Yes: WNL Edema: No Neurological: Yes: Oriented Psychiatric: Yes: Oriented Labs: CBC, BMP 10/12/18 06:32 10/13/18 06:20 Problem List - Problems (1) Hyperkalemia Code(s): E87.5 - HYPERKALEMIA (2) HTN (hypertension) Code(s): I10 - ESSENTIAL (PRIMARY) HYPERTENSION (3) Diabetes mellitus Code(s): E11.9 - TYPE 2 DIABETES MELLITUS WITHOUT COMPLICATIONS (4) Vomiting Code(s): R11.10 - VOMITING, UNSPECIFIED (5) Hyponatremia Code(s): E87.1 - HYPO-OSMOLALITY AND HYPONATREMIA Assessment/Plan Current Medications Generic Name Dose Route Start Last Admin Trade Name Freq PRN Reason Stop Dose Admin Amoxicillin/Clavulanate Potassium 1 tab 10/10/18 17:30 10/13/18 08:14 Augmentin - 500mg Tablet PO 1 tab BID@0800,1730 [facility] Administration Carvedilol 25 mg 10/10/18 22:00 10/13/18 09:42 Coreg - PO 25 mg BID [facility] Administration Cilostazol 50 mg 10/11/18 10:00 10/13/18 09:43 Pletal - PO 50 mg DAILY [facility] Administration Glimepiride 2 mg 10/11/18 07:00 10/13/18 06:32 Amaryl - PO 2 mg ACBK [facility]ZB[facility] Administration Heparin Sodium (Porcine) 5,000 unit 10/10/18 22:00 10/13/18 09:42 Heparin - SQ 5,000 unit BID LIZBETH Administration Isosorbide Mononitrate 60 mg 10/11/18 10:00 10/13/18 09:42 Imdur - PO 60 mg DAILY [facility] Administration Levothyroxine Sodium 50 mcg 10/11/18 07:00 10/13/18 06:32 Synthroid - PO 50 mcg DAILY@0700 [facility] Administration Pantoprazole Sodium 40 mg 10/11/18 10:00 10/13/18 09:42 Protonix - PO 40 mg DAILY [facility] Administration Potassium Chloride 40 meq 10/13/18 10:00 10/13/18 09:45 Potassium Chloride Oral Liquid PO 10/13/18 10:01 40 meq ONCE ONE Administration Impression 1. hyponatremia 2. hyperkalemia 3. nausea and vomiting 4. htn 5. dm 6. hypothyroidism 7. javan vs ckd 8. fatty liver Plan - volume status improved - cont bp meds - bp is improved - monitor lytes - check mag
[2018-10-13] MEDS ORDERED: POTASSIUM CHLORIDE ORAL LIQUID 20 MEQ/15 ML PO ONE (10:00)
[2018-10-13 10:04] VITALS: BP 127/52; PULSE 60; TEMP 98
--- NOTE | 2018-10-13 10:44 | PN ---
Progress Note, Physician History of Present Illness: stable no new issues - Current Medication List Current Medications: Active Medications Amoxicillin/Clavulanate Potassium (Augmentin - 500mg Tablet) 1 tab PO BID@0800, 1730 [facility] Last Admin: 10/13/18 08:14 Dose: 1 tab Carvedilol (Coreg -) 25 mg PO BID [facility] Last Admin: 10/13/18 09:42 Dose: 25 mg Cilostazol (Pletal -) 50 mg PO DAILY [facility] Last Admin: 10/13/18 09:43 Dose: 50 mg Glimepiride (Amaryl -) 2 mg PO ACBK [facility] Last Admin: 10/13/18 06:32 Dose: 2 mg Heparin Sodium (Porcine) (Heparin -) 5,000 unit SQ BID [facility] Last Admin: 10/13/18 09:42 Dose: 5,000 unit Isosorbide Mononitrate (Imdur -) 60 mg PO DAILY [facility] Last Admin: 10/13/18 09:42 Dose: 60 mg Levothyroxine Sodium (Synthroid -) 50 mcg PO DAILY@0700 [facility] Last Admin: 10/13/18 06:32 Dose: 50 mcg Pantoprazole Sodium (Protonix -) 40 mg PO DAILY [facility] Last Admin: 10/13/18 09:42 Dose: 40 mg - Objective Vital Signs: Vital Signs Temperature 98 F 10/13/18 10:00 Pulse Rate 60 10/13/18 10:00 Respiratory Rate 18 10/13/18 10:00 Blood Pressure 127/52 L 10/13/18 10:00 O2 Sat by Pulse Oximetry (%) 98 10/12/18 22:00 Constitutional: Yes: No Distress, Calm Cardiovascular: Yes: Regular Rate and Rhythm Respiratory: Yes: Regular, CTA Bilaterally Gastrointestinal: Yes: Normal Bowel Sounds, Soft Musculoskeletal: Yes: WNL Extremities: Yes: WNL Neurological: Yes: Alert, Oriented Psychiatric: Yes: Alert, Oriented Labs: CBC, BMP 10/12/18 06:32 10/13/18 06:20 Assessment/Plan Problem List - Problems (1) Hyponatremia Code(s): E87.1 - HYPO-OSMOLALITY AND HYPONATREMIA (2) Wheezing Code(s): R06.2 - WHEEZING 3 vomiting cough plan continue current mgmt will stop abx monitor rest as per team
--- NOTE | 2018-10-13 13:26 | DS ---
Physical Examination Vital Signs: Vital Signs Temperature 98 F 10/13/18 10:00 Pulse Rate 60 10/13/18 10:00 Respiratory Rate 18 10/13/18 10:00 Blood Pressure 127/52 L 10/13/18 10:00 O2 Sat by Pulse Oximetry (%) 98 10/13/18 09:00 Constitutional: Yes: No Distress HENT: Yes: Atraumatic Neck: Yes: Supple Cardiovascular: Yes: Regular Rate and Rhythm Respiratory: Yes: CTA Bilaterally Gastrointestinal: Yes: Normal Bowel Sounds Extremities: Yes: WNL Edema: No Neurological: Yes: Alert, Oriented Labs: CBC, BMP 10/12/18 06:32 10/13/18 06:20 Discharge Summary Reason For Visit: HYPONATREMIA Current Active Problems Diabetes mellitus (Acute) Dysphagia (Acute) Fluid overload (Acute) HTN (hypertension) (Acute) Hyperkalemia (Acute) Hyponatremia (Acute) Hypothyroid (Acute) Nausea & vomiting (Acute) Vomiting (Acute) Wheezing (Acute) Condition: Guarded - Instructions Referrals: Che Bethea MD [Staff Physician] - Dina Cade MD [Staff Physician] - Disposition: HOME - Home Medications Comprehensive Discharge Medication List: Ambulatory Orders Cilostazol 50 mg PO DAILY 10/06/[address] [facility] 10/06/18 Isosorbide Mononitrate [Isosorbide Mononitrate ER] 60 mg PO DAILY 10/06/18 Levothyroxine [Synthroid -] 50 mcg PO ACBK 10/06/18 Carvedilol [Coreg -] 25 mg PO BID #14 tablet 10/13/18
== END 2018-10-13 14:02 | disposition home or self-care (01) | DRG 641 ==
LOC: JER 11:08 → JERBED 16:31 → J8W 19:36 → OBSVTOIN 10-08 11:18 → J4W 10-10 14:09
PROVIDERS: ADMIT Internal Medicine; ATTEND Internal Medicine
DX: E87.1 Hypo-osmolality and hyponatremia (principal); J98.11 Atelectasis; N17.9 Acute kidney failure, unspecified; J90 Pleural effusion, not elsewhere classified; E11.9 Type 2 diabetes mellitus without complications; I10 Essential (primary) hypertension; E78.5 Hyperlipidemia, unspecified; E03.9 Hypothyroidism, unspecified; Z95.1 Presence of aortocoronary bypass graft; Z79.84 Long term (current) use of oral hypoglycemic drugs; E87.5 Hyperkalemia; Z86.73 Personal history of transient ischemic attack (TIA), and cerebral infarction without residual deficits; R06.2 Wheezing; K76.0 Fatty (change of) liver, not elsewhere classified; R13.10 Dysphagia, unspecified; E87.70 Fluid overload, unspecified; R11.10 Vomiting, unspecified
CPT/HCPCS: 36415; 36600; 71045-TC-FY; 74176-TC; 74220-TC-FY; 74240-TC-FY; 76705-TC; 76775-TC; 80048; 80053; 81003; 82436; 82565; 82803; 82962; 83690; 83930; 83935; 84133; 84300; 84484; 85025; 93005; 93010; 94640; 97116-GP; 97161-GP; 99283-25; G0378; J0131; J1644; J7030